=== PATIENT | male | born 1960 | race Caucasian/White ===

== ENCOUNTER 2016-07-03 15:13 | Inpatient (IN) | payer OTHER ==
[~2016-07-03] VITALS: Ht 188 cm; Wt 169.5 kg
[2016-07-06] VITALS (16 sets, daily range): BP systolic 83–140; BP diastolic 41–67; PULSE 72–82; RESP 11–23; Ht 188 cm; Wt 169.5 kg
[2016-07-06] MEDS ORDERED: EPHEDrine SULFATE 50 MG/5 ML SYG ONE (07:00)
[2016-07-06] MEDS ORDERED: VALS1TAB82 PO (08:39)
[2016-07-06] MEDS ORDERED: AMLO2.5T78 PO (08:40)
[2016-07-06] MEDS ORDERED: HYDR-902 PO (08:41)
[2016-07-06] MEDS ORDERED: METH500T8 PO (08:42)
[2016-07-06] MEDS ORDERED: PROPOFOL 100 ML ONE ×2 (08:53→12:49)
[2016-07-06] MEDS ORDERED: ROCURONIUM 50 MG INJ ONE ×2 (08:53→13:47)
[2016-07-06] MEDS ORDERED: SUCCINYLCHOLINE CHLORIDE 100 MG/5 ML SYG IV ONE ×2 (08:53→12:49)
[2016-07-06] MEDS ORDERED: MIDAZOLAM 1 MG/ML 2 ML INJ ONE (08:53)
[2016-07-06] MEDS ORDERED: CEFAZOLIN 2 GM/50 ML (PMX) 50 ML IVPB SCH (09:00)
[2016-07-06] MEDS ORDERED: LACTATED RINGER'S 1,000 ML IV SCH (09:00)
--- NOTE | 2016-07-06 10:07 | HPN ---
Date/Time of Note Date/Time of Note DATE: 07/06/16 TIME: 10:06 Interval H&P Admission Note Pt. seen H&P reviewed: No system changes GISELLA LOAIZA MD July 06, 2016 10:06
[2016-07-06] MEDS ORDERED: POLYMYXIN/BACITRACIN 1L IRRIG ONE (10:12)
[2016-07-06] MEDS ORDERED: THROMBIN 5000 UNIT VIAL ONE (10:12)
[2016-07-06] MEDS ORDERED: BUPIVACAINE 0.25% (MPF) 10 ML 10 ML VIAL ONE (10:12)
[2016-07-06] MEDS ORDERED: GELATIN SIZE 100 SPONGE ONE (10:12)
[2016-07-06] MEDS ORDERED: PHENYLephrine (100 MCG/ML) 5ML SYG ONE (10:40)
[2016-07-06] MEDS ORDERED: LABETALOL HCL 20MG INJ ONE (11:25)
[2016-07-06] MEDS ORDERED: hydrALAzine 20 MG INJ ONE (11:26)
[2016-07-06] MEDS ORDERED: METOCLOPRAMIDE 10 MG INJ ONE (12:50)
[2016-07-06] MEDS ORDERED: KETOROLAC 30 MG INJ ONE (12:50)
[2016-07-06] MEDS ORDERED: FAMOTIDINE 20 MG INJ ONE (12:50)
[2016-07-06] MEDS ORDERED: ONDANSETRON 4 MG INJ ONE (12:50)
[2016-07-06] MEDS ORDERED: DEXAMETHASONE 4 MG/ML 1 ML INJ ONE (12:50)
[2016-07-06] MEDS ORDERED: MEPERIDINE 25 MG INJ IV PRN (13:00)
[2016-07-06] MEDS ORDERED: LABETALOL HCL 20MG INJ IV PRN (13:00)
[2016-07-06] MEDS ORDERED: ONDANSETRON 4 MG INJ IV PRN ×2 (13:00→16:00)
[2016-07-06] MEDS ORDERED: morphine (1 MG/ML) 10ML SYRINGE IV PRN ×3 (13:00)
[2016-07-06] MEDS ORDERED: DIPHENHYDRAMINE 50 MG INJ IV PRN (13:00)
[2016-07-06] MEDS ORDERED: METOCLOPRAMIDE 10 MG INJ IV PRN (13:00)
[2016-07-06] MEDS ORDERED: EPHEDrine SULFATE 50 MG/5 ML SYG IV PRN (13:00)
[2016-07-06] MEDS ORDERED: FENTAnyl 50 MCG/ML VIAL IV PRN ×3 (13:00)
[2016-07-06] MEDS ORDERED: hydrALAzine 20 MG INJ IV PRN (13:00)
[2016-07-06] MEDS ORDERED: HYDROmorphONE (0.2 MG/ML) 10ML SYG IV PRN ×3 (13:00)
[2016-07-06] MEDS ORDERED: CEFAZOLIN 1 GM INJ ONE (15:18)
[2016-07-06] MEDS ORDERED: GLYCOPYRROLATE 0.4 MG INJ ONE (15:23)
[2016-07-06] MEDS ORDERED: NEOSTIGMINE 3 MG/3 ML SYRINGE ONE (15:23)
[2016-07-06] MEDS ORDERED: ACETAMINOPHEN 325 MG TAB PO PRN (16:00)
[2016-07-06] MEDS ORDERED: TRIMETHOBENZAMIDE 100 MG/ML VIAL IM PRN (16:00)
[2016-07-06] MEDS ORDERED: NALOXONE (0.4 MG/ML) INJ IV PRN (16:00)
[2016-07-06] MEDS ORDERED: BETHANECHOL 25 MG TAB PO PRN (16:00)
[2016-07-06] MEDS ORDERED: HYDROCODONE/APAP (5/325) TAB PO PRN (16:00)
[2016-07-06] MEDS ORDERED: HYDROmorphONE 0.2 MG/ML PCA IV SCH (16:00)
[2016-07-06] MEDS ORDERED: DIPHENHYDRAMINE 50 MG CAP PO PRN (16:00)
[2016-07-06] MEDS ORDERED: AL HYDROX/MG HYDROX/SIMETH 30 ML CUP PO PRN (16:00)
[2016-07-06] MEDS ORDERED: PROCHLORPERAZINE 10 MG TAB PO PRN (16:00)
[2016-07-06] MEDS ORDERED: NACL 0.9% 3 ML SYG IV SCH (16:00)
[2016-07-06] MEDS ORDERED: ZOLPIDEM 5 MG TAB PO PRN (16:00)
[2016-07-06] MEDS ORDERED: DIAZEPAM 5 MG/ML SYG IM PRN (16:00)
[2016-07-06] MEDS ORDERED: CEPASTAT LOZENGE MT PRN (16:00)
--- NOTE | 2016-07-06 16:04 | OPR ---
Date/Time of Note Date/Time of Note DATE: 07/06/16 TIME: 16:00 Operative Report Preoperative Diagnosis Lumbar Spinal Stenosis L2-L5 Postoperative Diagnosis Same Operation Performed Central decompressive laminectomy at L2 Central decompressive laminectomy at L3 Central decompressive laminectomy at L4 Central decompressive laminectomy at L5 Surgeon: GISELLA LOAIZA MD surgery assistant: GEETA CLEMENT Anesthesia: general Anesthesiologist: STEVENSON PALOMINO MD Estimated Blood Loss: other Specimens Spinous processes L2 L3 L4 L5 Tubes/Drains Two medium hemovacs Complications: None Pt Condition Post Procedure: stable Disposition: PACU Operative\Procedure Findings At surgery, multilevel spinal stenosis was confirmed L2-L5 GISELLA LOAIZA MD July 06, 2016 16:04
[2016-07-06 16:08] LABS: ADD SCAN DIFF NO
[2016-07-06 16:09] LABS: ABNORMAL IP MESSAGE 1; BASOPHILS % 0.2 % (0.0-2.0); EOSINOPHILS % 0.1 % (0.0-7.0); HEMATOCRIT 33.3 % (42.0-52.0); HEMOGLOBIN 10.9 g/dl (14.0-18.0); LYMPHOCYTES # 0.4 10^3/ul (0.8-2.9); LYMPHOCYTES % 2.8 % (15.0-51.0); MEAN CORPUSCULAR HGB CONC 32.7 g/dl (32.0-37.0); MEAN CORPUSCULAR VOLUME 85.6 fl (82.0-101.0); MEAN PLATELET VOLUME 10.1 fl (7.4-10.4); MONOCYTE # 0.3 10^3/ul (0.3-0.9); MONOCYTES % 1.7 % (0.0-11.0); NEUTROPHIL # 14.1 10^3/ul (1.6-7.5); NEUTROPHILS % 94.5 % (39.0-77.0); PLATELET COUNT 235 10^3/UL (140-415); RED BLOOD COUNT 3.89 10^6/ul (4.70-6.10); RED CELL DISTRIBUTION WIDTH 14.3 % (11.5-14.5); WHITE BLOOD COUNT 14.9 10^3/ul (4.8-10.8)
--- NOTE | 2016-07-06 17:28 | RADRPT ---
PROCEDURE: XR Lumbar Spine one view. CLINICAL INDICATION: Low back pain. Intraoperative. TECHNIQUE: Prone portable cross-table lateral. COMPARISON: No prior studies are available for comparison. FINDINGS: There are 2 posterior needle markers. The levels cannot be determined due to large size of the vani ent and suboptimal image. IMPRESSION: 1. Intraoperative imaging as described above. RPTAT: QQ .Eric Rodriguez MD, MD Date Time Electronically viewed and signed by .Eric Rodriguez MD, on 07/06/2016 17:28 .R/
--- NOTE | 2016-07-06 17:29 | RADRPT ---
PROCEDURE: XR Lumbar Spine one view. CLINICAL INDICATION: Low back pain. Intraoperative. TECHNIQUE: Prone portable cross-table lateral. COMPARISON: Prior study done earlier the same day. FINDINGS: There are 3 posterior surgical instruments. The levels cannot be determined due to large size of th e patient and suboptimal image. IMPRESSION: 1. Intraoperative imaging as described above. RPTAT: QQ .Eric Rodriguez MD, MD Date Time Electronically viewed and signed by .Eric Rodriguez MD, on 07/06/2016 17:29 .R/
[2016-07-06] MEDS: CEFAZOLIN 1 GM/50 ML (PMX) 50 ML IVPB SCH (18:01)
[2016-07-06] MEDS: DEXTROSE 5%-0.45% NACL 1,000 ML IV SCH (18:02)
--- NOTE | 2016-07-06 18:27 | CONS ---
Date/Time of Note Date/Time of Note DATE: 07/06/16 TIME: 18:14 Assessment/Plan Assessment/Plan Problems: (1) Essential (primary) hypertension Status: Chronic Comment: Cont. carvedilol and valsartan-HCT. Monitor BP (2) Morbid (severe) obesity due to excess calories Status: Chronic Comment: Low-fat diet and dietary consult. Cont. SCD's especially in light of Fhx of DVT (3) Tinea pedis Status: Acute Comment: Terbinafine cream bid (4) Lumbar spinal stenosis Status: Resolved (5) Aftercare following surgery of the musculoskeletal system Status: Acute Comment: Doing well POD#0. Acute neurologic injury appears resolved. PT/pain control per primary team. Will follow with you and monitor for medical issues should they arise. Consultation Date/Type/Reason Admit Date/Time July 06, 2016 at 07:55 Date of Consultation: July 06, 2016 Type of Consultation: Medicine Reason for Consultation Medical Management Referring Provider: GISELLA CABRERA MD Hx of Present Illness 55 y/o H M w/ h/o obesity and HTN in [facility] until 4 m. ago when he fell and tore meniscus in L knee. This led to multiple secondary falls which caused injury to his lumbar spine. Subsequent to this developed severe lumbar spinal pains running down both legs and associated BLE weakness and muscle spasms. It was determined that he would need decompressive surgery. Referred to Dr. Cabrera who took pt. today for lumbar lami L2-L5 this am. POD#0. No complaints. Constitutional: improved, no complaints Eyes: no complaints ENT: sore throat Respiratory: no complaints Cardiovascular: no complaints Gastrointestinal: no complaints Genitourinary: no complaints Musculoskeletal: no complaints Skin: rash (between toes) Neurologic: no complaints (leg weakness resolved) Past Medical History Medical History: hypertension Past Surgical History Past Surgical Hx: other (coronary angiogram, hammer toe surgery) Family History Significant Family History: cancer (colon, mother), hypertension, other (DVT- mother, B adrenal tumors-mother) Social History b. 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, single, no children Alcohol Use: rarely Smoking Status: Never smoker Drug Use: none Exam/Review of Systems Vital Signs Vitals Vital Signs Date Time Temp Pulse Resp B/P Pulse Ox O2 Delivery O2 Flow Rate FiO2 07/06/16 16:34 76 13 106/44 98 Nasal Cannula 2.0 07/06/16 15:43 98.1 Exam Constitutional: alert, obese, oriented Psych: nl mood/affect, no complaints Eyes: EOMI, PERRL, nl conjunctiva, nl lids, nl sclera ENMT: mucosa pink and moist, nl external ears & nose Neck: non-tender, supple, No bruits, No masses, No thyromegaly Respiratory: clear to auscultation, normal air movement Cardiovascular: nl pulses, regular rate and rhythm, No edema, No murmurs/extra sounds, No rub Gastrointestinal: bowel sounds, nl liver, spleen, non-tender, soft, No mass, No rebound or guarding Musculoskeletal: nl extremities to inspection Extremities: normal pulses, No clubbing, No cyanosis, No edema 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: LACE SEWER II-XII intact, nl mental status, nl speech, nl strength Skin: other (rash between 3rd and 4th digits on L foot) Results Result Diagram: 07/06/16 1600 Results 24 hrs Laboratory Tests Test 07/06/16 16:00 White Blood Count 14.9 H Red Blood Count 3.89 L Hemoglobin 10.9 L Hematocrit 33.3 L Mean Corpuscular Volume 85.6 Mean Corpuscular Hemoglobin 28.0 L Mean Corpuscular Hemoglobin Concent 32.7 Red Cell Distribution Width 14.3 Platelet Count 235 Mean Platelet Volume 10.1 Neutrophils % 94.5 H Lymphocytes % 2.8 L Monocytes % 1.7 Eosinophils % 0.1 Basophils % 0.2 Nucleated Red Blood Cells % 0.0 Neutrophils # 14.1 H Lymphocytes # 0.4 L Monocytes # 0.3 Eosinophils # 0.0 Basophils # 0.0 Nucleated Red Blood Cells # 0.0 Medications Medications Current Medications Lactated Ringer's 1,000 ml @ 0 mls/hr Q0M IV ; Start 07/06/16 at 09:00 Dextrose/Sodium Chloride (D5-1/2ns) 1,000 ml @ 100 mls/hr Q10H IV Last administered on 07/06/16t 18:02; Admin Dose 100 MLS/HR; Start 07/06/16 at 15:46 Acetaminophen/ Hydrocodone Bitart ([place] (5/325)) 1 tab Q4H PRN PO PAIN LEVEL 1 -5; Start 07/06/16 at 16:00 Acetaminophen/ Hydrocodone Bitart 2 tab 2 tab Q4H PRN PO PAIN LEVEL 6-10; Start 07/06/16 at 16:00 Cefazolin Sodium (Ancef 1 Gm/50 ml (Pmx)) 50 ml @ 100 mls/hr Q6 IVPB Last administered on 07/06/16t 18:01; Admin Dose 100 MLS/HR; Start 07/06/16 at 18:00 ; Stop 07/07/16 at 12:29 Zolpidem Tartrate (Ambien) 5 mg HS PRN PO INSOMNIA; Start 07/06/16 at 16:00 Prochlorperazine (Compazine) 10 mg Q4H PRN PO NAUSEA AND/OR VOMITING; Start at 16:00 Trimethobenzamide HCl (Tigan) 200 mg Q4H PRN IM NAUSEA AND/OR VOMITING; Start 07/06/16 at 16:00 Ondansetron HCl (Zofran Inj) 4 mg Q6H PRN IV NAUSEA AND/OR VOMITING; Start at 16:00 Al Hydrox/Mg Hydrox/Simethicone (Mag-Al Plus) 15 ml Q4H PRN PO CONSTIPATION; Start 07/06/16 at 16:00 Docusate Sodium (Colace) 100 mg BID PO ; Start 07/07/16 at 09:00 Acetaminophen (Tylenol Tab) 650 mg Q4H PRN PO TEMP GREATER THAN 101F OR CABRAL; Start 07/06/16 at 16:00 Ascorbic Acid (Vitamin C) 1,000 mg BID PO ; Start 07/07/16 at 09:00 Ferrous Sulfate (Ferrous Sulfate (Ec)) 325 mg TID PO ; Start 07/07/16 at 09:00 Ranitidine HCl (Zantac) 150 mg BID PO ; Start 07/06/16 at 21:00 Diazepam (Valium) 5 mg Q4H PRN PO MUSCLE SPASMS; Start 07/06/16 at 16:00 Diazepam (Valium) 5 mg Q4H PRN IM MUSCLE SPASMS; Start 07/06/16 at 16:00 Phenol (Cepastat Lozenge) 1 lozenge PRN PRN MT SORE THROAT; Start 07/06/16 at 16:00 Bethanechol Chloride (Urecholine) 25 mg PRN PRN PO UNABLE TO VOID; Start at 16:00 Diphenhydramine HCl (Benadryl) 50 mg Q6H PRN PO PRURITUS; Start 07/06/16 at 16: 00 Hydromorphone HCl (Dilaudid ASSISTANT ATHLETIC TRAINER) Q4PCA IV Last administered on 07/06/16t 16:13 ; Admin Dose 6 MG; Start 07/06/16 at 16:00 Naloxone HCl (Narcan) 0.2 mg Q2M PRN IV RR 8 BREATHS/MIN OR LESS; Start at 16:00 Amlodipine Besylate (Norvasc) 2.5 mg DAILY PO ; Start 07/07/16 at 09:00 Miscellaneous Information 1 tab DAILY PO ; Start 07/07/16 at 09:00; Status ASHLEY ZUNIGA MD July 06, 2016 18:24
--- NOTE | 2016-07-06 18:46 | OPR ---
DATE OF OPERATION: 07/06/2016 PREOPERATIVE DIAGNOSIS: Multilevel lumbar spinal stenosis at L2, L3, L4 and L5. POSTOPERATIVE DIAGNOSES: Multilevel lumbar spinal stenosis at L2, L3, L4 and L5. OPERATION PERFORMED: 1. Central decompressive laminectomy at L2. 2. Central decompressive laminectomy at L3. 3. Central decompressive laminectomy at L4. 4. Central decompressive laminectomy at L5. 5. Medial facetectomy and foraminotomy, L2-3, L3-4, L4-5, L5-S1, bilaterally. 6. Cosmetic wound closure (22 cm). 7. Lateral localized lumbar radiographs (2). 8. Intraoperative nerve monitoring (5-1/2 hours). SURGEON: Amari Cabrera MD SOLAR SALES: Sachi Morataya PA-C ANESTHESIA: General endotracheal. ANESTHESIOLOGIST: Wesly De Leon MD ESTIMATED BLOOD LOSS: 1100 mL-none replaced. DRAINS: Two medium Hemovac drains employed. COMPLICATIONS: None. PERTINENT HISTORY AND PHYSICAL: This is a 55-year-old male with persistent severe pain in his back and legs which have been unrelieved by conservative management. He has undergone a number of diagno stic studies including an MRI of the lumbar spine, which demonstrated multilevel canal stenosis, and electrodiagnostic testing which revealed an active bilateral L5 and bilateral S1 radiculopathy with ongoing denervation. Treatment options were discussed with the patient, who elected to proceed wit h surgery. OPERATIVE FINDINGS AT SURGERY: A multilevel spinal stenosis was confirmed at L2, L3, L4, and L5. OPERATIVE PROCEDURE: With the patient in supine position after satisfactory induction of general en dotracheal anesthesia by Dr. De Leon the patient was turned to the prone kneeling position. Intraop erative nerve monitoring revealed a decrease in the L2 potential of 20% bilaterally, the L3 potentia l on the left of 70%, the L3 potential on the right 80%, the L4 potential on the left 60%, the L4 po tential on the right of 70%, the L5 potentials bilaterally 50% and the S1 potentials bilaterally 40% . These all returned to normal at the completion of surgery. OPERATIVE PROCEDURE: With the patient in supine position after satisfactory induction of general en dotracheal anesthesia by Dr. De Leon the patient was turned to the prone position onto the [facility] atop the standard operating room table. This was employed because of his size (380 pounds). Th e back was prepped and draped in usual sterile fashion. Athrombic pumps were applied to the legs be low the knees to prevent venous stasis during and after procedure. An indwelling Robles catheter was also placed preoperatively to facilitate bladder drainage during and after procedure. Two spinal ne edles were placed next to what was felt to be the L4 and L5 spinous processes, lateral roentgenogram was taken which confirmed anatomic localization. A 22 cm incision was then carried out from L2 to the sacrum through skin and subcutaneous tissue to the fascia. Superficial retractors were placed a nd hemostasis secured with electrocautery. Throughout the procedure, copious amounts of antibacteri al irrigating solution were used to periodically irrigate the wound. The fascia was incised in midl ine with a hot knife and a bilateral subperiosteal dissection carried out from L2 to the sacrum. De ep retractors were placed and deep hemostasis secured with electrocautery. A second intraoperative radiograph was taken with Hang clamps in what was felt to be the spinous process of L2, L3 and L4. However, neither nor the radiologist could confirm localization because of the patient's enormous size. For that reason, the dissection was carried distally to identify the sacrum which was used as an anatomic landmark. With this in mind, a central decompressive laminectomy was then performed at L5, L4, L3 and L2 using a Estefany right-angle bone rongeur, Leksell rongeur, Kerrison punches and c urettes. Ligamentum flavum was excised with sharp dissection. The operating microscope was then mo eddie into place. A medial facetectomy and foraminotomy was accomplished at L2-3, L3-4, L4-5, and L5- S1 bilaterally using small hand osteotome, mallet, Kerrison punches and curettes. A thorough search of the floor of the canal was made but no disk herniations were identified. The anesthesiologist w as asked to perform a Valsalva maneuver at 40 mmHg. No spinal fluid leak was noted. The wound was then closed in layers over 2 medium Hemovac drains, one below the fascia and one above the fascia us ing #1 Vicryl Stratafix sutures on the deep paralumbar musculature and of the back, 2-0 Stratafix real tures on the subcu tissue, and a 4-0 Vicryl subcuticular cosmetic closing suture on the skin. Orwin alberts and sterile compressive dressings were applied. The patient tolerated the procedure well, was then turned to supine position onto his bed and extubated by Dr. De Leon. He was transported to the recovery room in satisfactory condition. At the conclusion of the procedure, sponge, instrument, a nd needle counts were all correct. NEED FOR GRINDER OPERATOR EXTERNAL TOOL: During this spinal surgical procedure, my doctor assistant was used to retrac t and protect the spinal nerves and dural sac. My doctor assistant also employed the suction catheters to e vacuate blood from the surgical field to improve visualization of the neural structures. The assista nt was medically necessary to facilitate the completion of the surgery in a safe and expeditious man ner. State of [place] regulations, as well as hospital bylaws, preclude the use of non-licensed [facility] care personnel such as operating room technicians, to perform these functions. Throughout the procedure, neural monitoring was carried out by [employer] including EMG, SSEP and MEP monitoring of the L3, L4, L5 and S1 nerve roots bilaterally along with s john cord potentials. These were interpreted by neurologist employed by [email or web address]. Dictated By: AMARI CABRERA MD TM/NTS Conf#: [id number] DID#: [id number] CC: ASHLEY JEREZ MD;*[facility]*
[2016-07-06] MEDS: RANITIDINE 150 MG TAB PO SCH (20:25)
[2016-07-06] MEDS: CLOTRIMAZOLE 1% 30 GM CR TOP SCH (20:25)
[2016-07-06] MEDS: DIAZEPAM 5 MG TAB PO PRN (20:31)
[2016-07-07] MEDS: CEFAZOLIN 1 GM/50 ML (PMX) 50 ML IVPB SCH ×3 (00:11→14:54)
[2016-07-07] MEDS: DIAZEPAM 5 MG TAB PO PRN ×3 (00:38→21:57)
[2016-07-07 01:02] VITALS: BP 128/76; PULSE 103; RESP 18
[2016-07-07] MEDS: DEXTROSE 5%-0.45% NACL 1,000 ML IV SCH ×3 (03:13→21:46)
[2016-07-07 05:55] LABS: HEMOGLOBIN 9.8 g/dl (14.0-18.0)
[2016-07-07 06:13] LABS: CALCIUM 7.8 mg/dl (8.4-10.2); CREATININE 1.35 mg/dl (0.61-1.24); POTASSIUM 3.5 mmol/L (3.5-5.1)
--- NOTE | 2016-07-07 07:13 | PN ---
Date/Time of Note Date/Time of Note DATE: 07/07/16 TIME: 07:11 Assessment/Plan Lines/Catheters IV Catheter Type (from Nrsg): Peripheral IV Robles in Place (from Nrsg): Yes Subjective 24 Hr Interval Summary Patient is postop day #1 following multilevel lumbar decompression. Neurovascular structures are intact. Vital signs are stable, hemoglobin this morning is 9.8. Hemovac drain overnight was 200 cc and this will be monitored. Plan today is to ambulate. Exam/Review of Systems Vital Signs Vitals Vital Signs Date Time Temp Pulse Resp B/P Pulse Ox O2 Delivery O2 Flow Rate FiO2 07/07/16 06:04 18 07/07/16 01:02 98.6 103 128/76 98 Nasal Cannula 1.0 Intake and Output 07/06/16 07/06/16 07/07/16 15:00 23:00 07:00 Intake Total 3100 ml 150 ml 2975 ml Output Total 1410 ml 1000 ml Balance 3100 ml -1260 ml 1975 ml Results Result Diagram: 07/07/16 0445 07/07/16 0445 GEETA CLEMENT July 07, 2016 07:13
--- NOTE | 2016-07-07 08:14 | OPPN ---
Date/Time of Note Date/Time of Note DATE: 07/07/16 TIME: 08:14 Post-Anesthesia Notes Post-Anesthesia Note Last documented vital signs Vital Signs Date Time Temp Pulse Resp B/P Pulse Ox O2 Delivery O2 Flow Rate FiO2 07/07/16 06:04 18 07/07/16 01:02 98.6 103 128/76 98 Nasal Cannula 1.0 Activity: WNL Respiratory function: WNL Cardiovascular function: WNL Mental status: Baseline Pain reasonably controlled: Yes Hydration appropriate: Yes Nausea/Vomiting absent: Yes STEVENSON PALOMINO MD July 07, 2016 08:14
[2016-07-07] MEDS: RANITIDINE 150 MG TAB PO SCH ×2 (08:20→20:17)
[2016-07-07] MEDS: ASCORBIC ACID 500 MG TAB PO SCH ×2 (08:20→20:18)
[2016-07-07] MEDS: DOCUSATE SODIUM 100 MG CAP PO SCH ×2 (08:20→20:17)
[2016-07-07] MEDS: FERROUS SULFATE (EC) 325 MG TAB PO SCH ×3 (08:20→20:17)
[2016-07-07] MEDS: BETHANECHOL 25 MG TAB PO PRN ×2 (08:33→14:54)
[2016-07-07 08:34] VITALS: BP 98/47; RESP 16
[2016-07-07] MEDS: HYDROCHLOROTHIAZIDE 25 MG TAB PO SCH (09:00)
[2016-07-07] MEDS: VALSARTAN 160 MG TAB PO SCH (09:00)
[2016-07-07] MEDS: AMLODIPINE 2.5 MG TAB PO SCH (09:00)
[2016-07-07] MEDS: HYDROCODONE/APAP (5/325) TAB PO PRN ×2 (12:40→20:17)
[2016-07-07] MEDS: CLOTRIMAZOLE 1% 30 GM CR TOP SCH ×2 (14:56→20:19)
[2016-07-07 20:57] VITALS: BP 100/58; RESP 20
--- NOTE | 2016-07-07 21:33 | CONS ---
Date/Time of Note Date/Time of Note DATE: 07/07/16 TIME: 21:28 Assessment/Plan Assessment/Plan Problems: (1) Essential (primary) hypertension Status: Chronic Comment: BP controlled w/o BP meds. Will monitor (2) Morbid (severe) obesity due to excess calories Status: Chronic Comment: Nutrition consult today. Cont. low-fat diet. (3) Aftercare following surgery of the musculoskeletal system Status: Acute Comment: Doing well POD#1. Pain controlled. Doing PT. Defer to primary team for further care. 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), bone/joint pain Neurologic: no complaints Exam/Review of Systems Vital Signs Vitals VS - Last 72 Hours, by Label Date Time Temp Pulse Resp B/P Pulse Ox O2 Delivery O2 Flow Rate FiO2 07/07/16 20:57 99.1 98 20 100/58 97 07/07/16 08:34 98.5 95 16 98/47 95 07/07/16 08:30 19 07/07/16 06:04 18 07/07/16 01:02 98.6 103 18 128/76 98 Nasal Cannula 1.0 07/07/16 01:00 18 07/06/16 21:00 18 07/06/16 20:20 Nasal Cannula 2.0 07/06/16 19:51 98.5 94 18 116/62 95 07/06/16 17:00 Nasal Cannula 2.0 07/06/16 16:34 76 13 106/44 98 Nasal Cannula 2.0 07/06/16 16:29 74 14 107/56 99 Nasal Cannula 2.0 07/06/16 16:24 74 17 113/44 99 Nasal Cannula 2.0 07/06/16 16:24 74 17 113/44 99 Nasal Cannula 2.0 07/06/16 16:19 78 13 102/51 98 Nasal Cannula 2.0 07/06/16 16:19 78 13 102/51 98 Nasal Cannula 2.0 07/06/16 16:14 76 16 102/49 98 Nasal Cannula 2.0 07/06/16 16:09 74 15 101/45 98 Nasal Cannula 2.0 07/06/16 16:04 74 15 96/43 98 Nasal Cannula 2.0 07/06/16 16:03 72 11 95/48 98 Nasal Cannula 2.0 07/06/16 15:54 72 14 100/42 97 Nasal Cannula 2.0 07/06/16 15:52 72 14 83/42 97 Nasal Cannula 2.0 07/06/16 15:49 72 13 86/44 96 Nasal Cannula 2.0 07/06/16 15:46 74 13 94/45 98 Nasal Cannula 2.0 07/06/16 15:44 74 16 90/41 97 Mask 6.0 07/06/16 15:43 98.1 07/06/16 15:39 98.2 78 23 106/50 98 Mask 6.0 07/06/16 15:36 Simple Mask 6.0 07/06/16 09:48 97.7 82 18 140/67 98 Room Air Vital Signs Date Time Temp Pulse Resp B/P Pulse Ox O2 Delivery O2 Flow Rate FiO2 07/07/16 20:57 99.1 98 20 100/58 97 07/07/16 01:02 Nasal Cannula 1.0 Intake and Output 07/06/16 07/06/16 07/07/16 15:00 23:00 07:00 Intake Total 3100 ml 150 ml 2975 ml Output Total 1410 ml 1000 ml Balance 3100 ml -1260 ml 1975 ml Exam Constitutional: alert, obese, oriented Psych: nl mood/affect, no complaints Respiratory: clear to auscultation, normal air movement Cardiovascular: nl pulses, regular rate and rhythm, No edema, No murmurs/extra sounds, No rub Gastrointestinal: bowel sounds, nl liver, spleen, non-tender, soft, No mass, No rebound or guarding Musculoskeletal: nl extremities to inspection Extremities: normal pulses, No clubbing, No cyanosis, No edema 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: CASSANDRA CONSULTANT II-XII intact, nl mental status, nl speech, nl strength Results Result Diagram: 07/07/165 07/07/165 Results 24 hrs Laboratory Tests Test 07/07/16 04:45 Hemoglobin 9.8 L Hematocrit 31.0 L Sodium Level 133 L Potassium Level 3.5 Chloride Level 103 Carbon Dioxide Level 26 Anion Gap 8 Blood Urea Nitrogen 22 H Creatinine 1.35 H Glucose Level 121 Calcium Level 7.8 L Medications Medications Current Medications Lactated Ringer's 1,000 ml @ 0 mls/hr Q0M IV ; Start 07/06/16 at 09:00 Dextrose/Sodium Chloride (D5-1/2ns) 1,000 ml @ 100 mls/hr Q10H IV Last administered on 07/07/16 03:13; Admin Dose 100 MLS/HR; Start 07/06/16 at 15:46 Acetaminophen/ Hydrocodone Bitart ([place] (5/325)) 1 tab Q4H PRN PO PAIN LEVEL 1 -5; Start 07/06/16 at 16:00 Acetaminophen/ Hydrocodone Bitart ([place] (5/325)) 2 tab Q4H PRN PO PAIN LEVEL 6 -10 Last administered on 07/07/16 20:17; Admin Dose 2 TAB; Start 07/06/16 at 16 :00 Zolpidem Tartrate (Ambien) 5 mg HS PRN PO INSOMNIA; Start 07/06/16 at 16:00 Prochlorperazine (Compazine) 10 mg Q4H PRN PO NAUSEA AND/OR VOMITING; Start at 16:00 Trimethobenzamide HCl (Tigan) 200 mg Q4H PRN IM NAUSEA AND/OR VOMITING; Start 07/06/16 at 16:00 Ondansetron HCl (Zofran Inj) 4 mg Q6H PRN IV NAUSEA AND/OR VOMITING; Start at 16:00 Al Hydrox/Mg Hydrox/Simethicone (Mag-Al Plus) 15 ml Q4H PRN PO CONSTIPATION; Start 07/06/16 at 16:00 Docusate Sodium (Colace) 100 mg BID PO Last administered on 07/07/16 20:17; Admin Dose 100 MG; Start 07/07/16 at 09:00 Acetaminophen (Tylenol Tab) 650 mg Q4H PRN PO TEMP GREATER THAN 101F OR CABRAL; Start 07/06/16 at 16:00 Ascorbic Acid (Vitamin C) 1,000 mg BID PO Last administered on 07/07/16 20:18 ; Admin Dose 1,000 MG; Start 07/07/16 at 09:00 Ferrous Sulfate (Ferrous Sulfate (Ec)) 325 mg TID PO Last administered on 20:17; Admin Dose 325 MG; Start 07/07/16 at 09:00 Ranitidine HCl (Zantac) 150 mg BID PO Last administered on 07/07/16 20:17; Admin Dose 150 MG; Start 07/06/16 at 21:00 Diazepam (Valium) 5 mg Q4H PRN PO MUSCLE SPASMS Last administered on 07/07/16 05:10; Admin Dose 5 MG; Start 07/06/16 at 16:00 Diazepam (Valium) 5 mg Q4H PRN IM MUSCLE SPASMS; Start 07/06/16 at 16:00 Phenol (Cepastat Lozenge) 1 lozenge PRN PRN MT SORE THROAT; Start 07/06/16 at 16:00 Diphenhydramine HCl (Benadryl) 50 mg Q6H PRN PO PRURITUS; Start 07/06/16 at 16: 00 Hydromorphone HCl (Dilaudid RESIDENT SERVICES SUPERVISOR) Q4PCA IV Last administered on 07/06/16 16:13 ; Admin Dose 6 MG; Start 07/06/16 at 16:00 Naloxone HCl (Narcan) 0.2 mg Q2M PRN IV RR 8 BREATHS/MIN OR LESS; Start at 16:00 Amlodipine Besylate (Norvasc) 2.5 mg DAILY PO ; Start 07/07/16 at 09:00 Valsartan (Diovan) 320 mg DAILY PO ; Start 07/07/16 at 09:00 Clotrimazole (Lotrimin Cr) 1 applic BID TOP Last administered on 07/07/16 20: 19; Admin Dose 1 APPLIC; Start 07/06/16 at 21:00 Hydrochlorothiazide (Hydrochlorothiazide) 25 mg DAILY PO ; Start 07/07/16 at 09: 00 Bethanechol Chloride (Urecholine) 25 mg PRN PRN PO UNABLE TO VOID Last administered on 07/07/16 14:54; Admin Dose 25 MG; Start 07/07/16 at 08:00 ASHLEY JEREZ MD July 07, 2016 21:32
[2016-07-08] MEDS: HYDROCODONE/APAP (5/325) TAB PO PRN ×5 (00:36→20:40)
[2016-07-08] MEDS: DEXTROSE 5%-0.45% NACL 1,000 ML IV SCH ×2 (02:35→16:50)
[2016-07-08] MEDS: DIAZEPAM 5 MG TAB PO PRN ×2 (04:38→20:39)
[2016-07-08 05:11] LABS: HEMATOCRIT 29.2 % (42.0-52.0); HEMOGLOBIN 9.4 g/dl (14.0-18.0)
[2016-07-08 05:46] LABS: CALCIUM 7.9 mg/dl (8.4-10.2); CREATININE 1.32 mg/dl (0.61-1.24); POTASSIUM 3.8 mmol/L (3.5-5.1)
--- NOTE | 2016-07-08 06:53 | PN ---
Date/Time of Note Date/Time of Note DATE: 07/08/16 TIME: 06:52 Assessment/Plan Lines/Catheters IV Catheter Type (from Nrsg): Saline Lock Robles in Place (from Nrsg): No Subjective 24 Hr Interval Summary The patient is postop day #2 following multilevel decompressive lumbar laminectomy. He is resting comfortably in bed. Neurovascular structures are intact distally. A.m. labs are unremarkable. He still has significant drainage in his Hemovac and we will observe that throughout the day. He is made slow progress with physical therapy thus far has been encouraged to do his best in walking around the floor. Exam/Review of Systems Vital Signs Vitals Vital Signs Date Time Temp Pulse Resp B/P Pulse Ox O2 Delivery O2 Flow Rate FiO2 07/07/16 20:57 99.1 98 20 100/58 97 07/07/16 01:02 Nasal Cannula 1.0 Intake and Output 07/07/16 07/07/16 07/08/16 15:00 23:00 07:00 Intake Total 200 ml 2040 ml 1600 ml Output Total 270 ml 1610 ml Balance 200 ml 1770 ml -10 ml Results Result Diagram: 07/08/16 0425 07/08/16 0425 GISELLA LOAIZA MD July 08, 2016 06:53
[2016-07-08 07:00] VITALS: BP 111/54; RESP 16
[2016-07-08] MEDS: HYDROCHLOROTHIAZIDE 25 MG TAB PO SCH (09:00)
[2016-07-08] MEDS: VALSARTAN 160 MG TAB PO SCH (09:00)
[2016-07-08] MEDS: RANITIDINE 150 MG TAB PO SCH ×2 (09:03→20:40)
[2016-07-08] MEDS: DOCUSATE SODIUM 100 MG CAP PO SCH ×2 (09:03→20:40)
[2016-07-08] MEDS: ASCORBIC ACID 500 MG TAB PO SCH ×2 (09:03→20:39)
[2016-07-08] MEDS: FERROUS SULFATE (EC) 325 MG TAB PO SCH ×3 (09:04→20:40)
[2016-07-08] MEDS: AMLODIPINE 2.5 MG TAB PO SCH (09:05)
[2016-07-08] MEDS: CLOTRIMAZOLE 1% 30 GM CR TOP SCH ×2 (09:06→20:44)
[2016-07-08 13:22] LABS: ADD UMIC YES; URINE BILIRUBIN (Dip) NEGATIVE (NEGATIVE); URINE BLOOD (Dip) NEGATIVE (NEGATIVE); URINE COLOR YELLOW (YELLOW); URINE GLUCOSE (Dip) NEGATIVE (NEGATIVE); URINE KETONES (Dip) TRACE (NEGATIVE); URINE LEUKOCYTE ESTERASE (Dip) NEGATIVE (NEGATIVE); URINE NITRITE (Dip) NEGATIVE (NEGATIVE); URINE TOTAL PROTEIN (Dip) 1+ (NEGATIVE); URINE UROBILINOGEN (Dip) 0.2 E.U./dL (0.1-1.0)
[2016-07-08 13:45] LABS: URINE RBCS NONE SEEN /HPF (0)
--- NOTE | 2016-07-08 18:06 | CONS ---
Date/Time of Note Date/Time of Note DATE: 07/08/16 TIME: 18:03 Assessment/Plan Assessment/Plan Problems: (1) Essential (primary) hypertension Status: Chronic Comment: BP continues to be in excellent control and pt. not requiring his home BP therapy. Will monitor. (2) Aftercare following surgery of the musculoskeletal system Status: Acute Comment: Doing well POD#2. No medical issues. Ambulating but drainage continues. Attempt to d/c tomorrow. Consultation Date/Type/Reason Admit Date/Time July 06, 2016 at 07:55 Initial Consult Date 07/06/16 Type of Consultation: Medicine Reason for Consultation Medical management Referring Provider: GISELLA LOAIZA MD 24 HR Interval Summary Constitutional: improved (ambulating more), no complaints Detailed Summary Respiratory: no complaints Cardiovascular: no complaints Gastrointestinal: no complaints Genitourinary: no complaints Musculoskeletal: back pain (worse when he tries to rise from bed but abates w/ standing), bone/joint pain (L knee) Neurologic: no complaints Exam/Review of Systems Vital Signs Vitals VS - Last 72 Hours, by Label Date Time Temp Pulse Resp B/P Pulse Ox O2 Delivery O2 Flow Rate FiO2 07/08/16 07:00 98.7 89 16 111/54 94 07/07/16 20:57 99.1 98 20 100/58 97 07/07/16 08:34 98.5 95 16 98/47 95 07/07/16 08:30 19 07/07/16 06:04 18 07/07/16 01:02 98.6 103 18 128/76 98 Nasal Cannula 1.0 07/07/16 01:00 18 07/06/16 21:00 18 07/06/16 20:20 Nasal Cannula 2.0 07/06/16 19:51 98.5 94 18 116/62 95 07/06/16 17:00 Nasal Cannula 2.0 07/06/16 16:34 76 13 106/44 98 Nasal Cannula 2.0 07/06/16 16:29 74 14 107/56 99 Nasal Cannula 2.0 07/06/16 16:24 74 17 113/44 99 Nasal Cannula 2.0 07/06/16 16:24 74 17 113/44 99 Nasal Cannula 2.0 07/06/16 16:19 78 13 102/51 98 Nasal Cannula 2.0 07/06/16 16:19 78 13 102/51 98 Nasal Cannula 2.0 07/06/16 16:14 76 16 102/49 98 Nasal Cannula 2.0 07/06/16 16:09 74 15 101/45 98 Nasal Cannula 2.0 07/06/16 16:04 74 15 96/43 98 Nasal Cannula 2.0 07/06/16 16:03 72 11 95/48 98 Nasal Cannula 2.0 07/06/16 15:54 72 14 100/42 97 Nasal Cannula 2.0 07/06/16 15:52 72 14 83/42 97 Nasal Cannula 2.0 07/06/16 15:49 72 13 86/44 96 Nasal Cannula 2.0 07/06/16 15:46 74 13 94/45 98 Nasal Cannula 2.0 07/06/16 15:44 74 16 90/41 97 Mask 6.0 07/06/16 15:43 98.1 07/06/16 15:39 98.2 78 23 106/50 98 Mask 6.0 07/06/16 15:36 Simple Mask 6.0 07/06/16 09:48 97.7 82 18 140/67 98 Room Air Vital Signs Date Time Temp Pulse Resp B/P Pulse Ox O2 Delivery O2 Flow Rate FiO2 07/08/16 07:00 98.7 89 16 111/54 94 07/07/16 01:02 Nasal Cannula 1.0 Intake and Output 07/07/16 07/07/16 07/08/16 15:00 23:00 07:00 Intake Total 200 ml 2040 ml 1600 ml Output Total 270 ml 1610 ml Balance 200 ml 1770 ml -10 ml Exam Constitutional: alert, obese, oriented Psych: nl mood/affect, no complaints Respiratory: clear to auscultation, normal air movement Cardiovascular: nl pulses, regular rate and rhythm, No edema, No murmurs/extra sounds, No rub Gastrointestinal: bowel sounds, nl liver, spleen, non-tender, soft, No mass, No rebound or guarding Musculoskeletal: nl extremities to inspection Extremities: normal pulses, No clubbing, No cyanosis, No edema 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: 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 SOLUTIONS 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 II-XII 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, nl mental status, nl speech, nl strength Results Result Diagram: 07/08/16 0425 07/08/16 0425 Results 24 hrs Laboratory Tests Test 07/08/16 04:25 Hemoglobin 9.4 L Hematocrit 29.2 L Sodium Level 134 L Potassium Level 3.8 Chloride Level 102 Carbon Dioxide Level 29 Anion Gap 7 L Blood Urea Nitrogen 22 H Creatinine 1.32 H Glucose Level 102 Calcium Level 7.9 L Medications Medications Current Medications Lactated Ringer's 1,000 ml @ 0 mls/hr Q0M IV ; Start 07/06/16 at 09:00 Dextrose/Sodium Chloride (D5-1/2ns) 1,000 ml @ 100 mls/hr Q10H IV Last administered on 07/07/16 03:13; Admin Dose 100 MLS/HR; Start 07/06/16 at 15:46 Acetaminophen/ Hydrocodone Bitart ([place] (5/325)) 1 tab Q4H PRN PO PAIN LEVEL 1 -5; Start 07/06/16 at 16:00 Acetaminophen/ Hydrocodone Bitart ([place] (5/325)) 2 tab Q4H PRN PO PAIN LEVEL 6 -10 Last administered on 07/08/16 14:01; Admin Dose 2 TAB; Start 07/06/16 at 16 :00 Zolpidem Tartrate (Ambien) 5 mg HS PRN PO INSOMNIA; Start 07/06/16 at 16:00 Prochlorperazine (Compazine) 10 mg Q4H PRN PO NAUSEA AND/OR VOMITING; Start at 16:00 Trimethobenzamide HCl (Tigan) 200 mg Q4H PRN IM NAUSEA AND/OR VOMITING; Start 07/06/16 at 16:00 Ondansetron HCl (Zofran Inj) 4 mg Q6H PRN IV NAUSEA AND/OR VOMITING; Start at 16:00 Al Hydrox/Mg Hydrox/Simethicone (Mag-Al Plus) 15 ml Q4H PRN PO CONSTIPATION; Start 07/06/16 at 16:00 Docusate Sodium (Colace) 100 mg BID PO Last administered on 07/08/16 09:03; Admin Dose 100 MG; Start 07/07/16 at 09:00 Acetaminophen (Tylenol Tab) 650 mg Q4H PRN PO TEMP GREATER THAN 101F OR CABRAL; Start 07/06/16 at 16:00 Ascorbic Acid (Vitamin C) 1,000 mg BID PO Last administered on 07/08/16 09:03 ; Admin Dose 1,000 MG; Start 07/07/16 at 09:00 Ferrous Sulfate (Ferrous Sulfate (Ec)) 325 mg TID PO Last administered on 12:21; Admin Dose 325 MG; Start 07/07/16 at 09:00 Ranitidine HCl (Zantac) 150 mg BID PO Last administered on 07/08/16 09:03; Admin Dose 150 MG; Start 07/06/16 at 21:00 Diazepam (Valium) 5 mg Q4H PRN PO MUSCLE SPASMS Last administered on 07/08/16 04:38; Admin Dose 5 MG; Start 07/06/16 at 16:00 Diazepam (Valium) 5 mg Q4H PRN IM MUSCLE SPASMS; Start 07/06/16 at 16:00 Phenol (Cepastat Lozenge) 1 lozenge PRN PRN MT SORE THROAT; Start 07/06/16 at 16:00 Diphenhydramine HCl (Benadryl) 50 mg Q6H PRN PO PRURITUS; Start 07/06/16 at 16: 00 Hydromorphone HCl (Dilaudid DETECTIVE AUTOMOBILE SECTION) Q4PCA IV Last administered on 07/06/16 16:13 ; Admin Dose 6 MG; Start 07/06/16 at 16:00 Naloxone HCl (Narcan) 0.2 mg Q2M PRN IV RR 8 BREATHS/MIN OR LESS; Start at 16:00 Amlodipine Besylate (Norvasc) 2.5 mg DAILY PO Last administered on 07/08/16 09 :05; Admin Dose 2.5 MG; Start 07/07/16 at 09:00 Valsartan (Diovan) 320 mg DAILY PO ; Start 07/07/16 at 09:00 Clotrimazole (Lotrimin Cr) 1 applic BID TOP Last administered on 07/08/16 09: 06; Admin Dose 1 APPLIC; Start 07/06/16 at 21:00 Hydrochlorothiazide (Hydrochlorothiazide) 25 mg DAILY PO ; Start 07/07/16 at 09: 00 Bethanechol Chloride (Urecholine) 25 mg PRN PRN PO UNABLE TO VOID Last administered on 07/07/16 14:54; Admin Dose 25 MG; Start 07/07/16 at 08:00 ASHLEY JEREZ MD July 08, 2016 18:06
[2016-07-08 19:00] VITALS: BP 119/59; RESP 18
[2016-07-09] MEDS: DEXTROSE 5%-0.45% NACL 1,000 ML IV SCH (03:46)
[2016-07-09] MEDS: HYDROCODONE/APAP (5/325) TAB PO PRN ×3 (06:41→20:05)
--- NOTE | 2016-07-09 07:31 | PN ---
Date/Time of Note Date/Time of Note DATE: 07/09/16 TIME: 07:30 Assessment/Plan Lines/Catheters IV Catheter Type (from Nrsg): Saline [place] in Place (from Nrsg): No Subjective 24 Hr Interval Summary Patient is postop day #3 from multilevel lumbar decompression. He is doing well. He has been up ambulating with physical therapy and will likely be discharged to short-term rehab. Hemovac drain overnight was 10 cc and this was removed with RN assist. Incision is healing well. Neurovascular structures are intact distally Exam/Review of Systems Vital Signs Vitals Vital Signs Date Time Temp Pulse Resp B/P Pulse Ox O2 Delivery O2 Flow Rate FiO2 07/08/16 19:00 99.6 77 18 119/59 93 07/07/16 01:02 Nasal Cannula 1.0 Intake and Output 07/08/16 07/08/16 07/09/16 15:00 23:00 07:00 Intake Total 1520 ml 1500 ml Output Total 1260 ml 2310 ml Balance 260 ml -810 ml Results Result Diagram: 07/08/16 0425 07/08/16 0425 GEETA CLEMENT July 09, 2016 07:31
[2016-07-09 08:12] VITALS: BP 119/57; RESP 20
[2016-07-09] MEDS: DOCUSATE SODIUM 100 MG CAP PO SCH ×2 (09:46→20:04)
[2016-07-09] MEDS: RANITIDINE 150 MG TAB PO SCH ×2 (09:47→20:04)
[2016-07-09] MEDS: FERROUS SULFATE (EC) 325 MG TAB PO SCH ×3 (09:47→20:04)
[2016-07-09] MEDS: ASCORBIC ACID 500 MG TAB PO SCH ×2 (09:47→20:04)
[2016-07-09] MEDS: VALSARTAN 160 MG TAB PO SCH (09:48)
[2016-07-09] MEDS: HYDROCHLOROTHIAZIDE 25 MG TAB PO SCH (09:48)
[2016-07-09] MEDS: AMLODIPINE 2.5 MG TAB PO SCH (09:48)
[2016-07-09] MEDS: CLOTRIMAZOLE 1% 30 GM CR TOP SCH ×2 (09:50→20:04)
--- NOTE | 2016-07-09 17:34 | CONS ---
Date/Time of Note Date/Time of Note DATE: 07/09/16 TIME: 17:31 Assessment/Plan Assessment/Plan Problems: (1) Essential (primary) hypertension Status: Chronic Comment: Doing well. Controlled. Cont. antihypertensives for control if needed. (2) Aftercare following surgery of the musculoskeletal system Status: Acute Comment: Doing well POD#3. Ambulating. Pain well controlled. Pt. will go to ARU for further rehab. Consultation Date/Type/Reason Admit Date/Time July 06, 2016 at 07:55 Initial Consult Date 07/06/16 Type of Consultation: Medicine Reason for Consultation Medical management Referring Provider: GISELLA LOAIZA MD 24 HR Interval Summary Constitutional: improved, no complaints Detailed Summary Respiratory: no complaints Cardiovascular: no complaints Gastrointestinal: no complaints Genitourinary: no complaints Musculoskeletal: back pain (mild, ambulating ) Neurologic: no complaints Exam/Review of Systems Vital Signs Vitals VS - Last 72 Hours, by Label Date Time Temp Pulse Resp B/P Pulse Ox O2 Delivery O2 Flow Rate FiO2 07/09/16 08:12 98.6 78 20 119/57 97 07/08/16 19:00 99.6 77 18 119/59 93 07/08/16 07:00 98.7 89 16 111/54 94 07/07/16 20:57 99.1 98 20 100/58 97 07/07/16 08:34 98.5 95 16 98/47 95 07/07/16 08:30 19 07/07/16 06:04 18 07/07/16 01:02 98.6 103 18 128/76 98 Nasal Cannula 1.0 07/07/16 01:00 18 07/06/16 21:00 18 07/06/16 20:20 Nasal Cannula 2.0 07/06/16 19:51 98.5 94 18 116/62 95 Vital Signs Date Time Temp Pulse Resp B/P Pulse Ox O2 Delivery O2 Flow Rate FiO2 07/09/16 08:12 98.6 78 20 119/57 97 07/07/16 01:02 Nasal Cannula 1.0 Intake and Output 07/08/16 07/08/16 07/09/16 15:00 23:00 07:00 Intake Total 1520 ml 1500 ml Output Total 1260 ml 2310 ml Balance 260 ml -810 ml Exam Constitutional: alert, obese, oriented Psych: nl mood/affect, no complaints Respiratory: clear to auscultation, normal air movement Cardiovascular: nl pulses, regular rate and rhythm, No edema, No murmurs/extra sounds, No rub Gastrointestinal: bowel sounds, nl liver, spleen, non-tender, soft, No mass, No rebound or guarding Musculoskeletal: nl extremities to inspection Extremities: normal pulses, No clubbing, No cyanosis, No edema 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, nl mental status, nl speech, nl strength Results Result Diagram: 07/08/1642407/08/16424 Medications Medications Current Medications Lactated Ringer's (Lr) 1,000 ml @ 0 mls/hr Q0M IV ; Start 07/06/16 at 09:00 Acetaminophen/ Hydrocodone Bitart ([place] (5/325)) 1 tab Q4H PRN PO PAIN LEVEL 1 -5; Start 07/06/16 at 16:00 Acetaminophen/ Hydrocodone Bitart ([place] (5/325)) 2 tab Q4H PRN PO PAIN LEVEL 6 -10 Last administered on 07/09/16 15:18; Admin Dose 2 TAB; Start 07/06/16 at 16 :00 Zolpidem Tartrate (Ambien) 5 mg HS PRN PO INSOMNIA; Start 07/06/16 at 16:00 Prochlorperazine (Compazine) 10 mg Q4H PRN PO NAUSEA AND/OR VOMITING; Start at 16:00 Trimethobenzamide HCl (Tigan) 200 mg Q4H PRN IM NAUSEA AND/OR VOMITING; Start 07/06/16 at 16:00 Ondansetron HCl (Zofran Inj) 4 mg Q6H PRN IV NAUSEA AND/OR VOMITING; Start at 16:00 Al Hydrox/Mg Hydrox/Simethicone (Mag-Al Plus) 15 ml Q4H PRN PO CONSTIPATION; Start 07/06/16 at 16:00 Docusate Sodium (Colace) 100 mg BID PO Last administered on 07/09/16 09:46; Admin Dose 100 MG; Start 07/07/16 at 09:00 Acetaminophen (Tylenol Tab) 650 mg Q4H PRN PO TEMP GREATER THAN 101F OR CABRAL; Start 07/06/16 at 16:00 Ascorbic Acid (Vitamin C) 1,000 mg BID PO Last administered on 07/09/16 09:47 ; Admin Dose 1,000 MG; Start 07/07/16 at 09:00 Ferrous Sulfate (Ferrous Sulfate (Ec)) 325 mg TID PO Last administered on 12:34; Admin Dose 325 MG; Start 07/07/16 at 09:00 Ranitidine HCl (Zantac) 150 mg BID PO Last administered on 07/09/16 09:47; Admin Dose 150 MG; Start 07/06/16 at 21:00 Diazepam (Valium) 5 mg Q4H PRN PO MUSCLE SPASMS Last administered on 07/08/16 20:39; Admin Dose 5 MG; Start 07/06/16 at 16:00 Diazepam (Valium) 5 mg Q4H PRN IM MUSCLE SPASMS; Start 07/06/16 at 16:00 Phenol (Cepastat Lozenge) 1 lozenge PRN PRN MT SORE THROAT; Start 07/06/16 at 16:00 Diphenhydramine HCl (Benadryl) 50 mg Q6H PRN PO PRURITUS; Start 07/06/16 at 16: 00 Hydromorphone HCl (Dilaudid CLINICAL CARE MANAGER) Q4PCA IV Last administered on 07/06/16 16:13 ; Admin Dose 6 MG; Start 07/06/16 at 16:00 Naloxone HCl (Narcan) 0.2 mg Q2M PRN IV RR 8 BREATHS/MIN OR LESS; Start at 16:00 Amlodipine Besylate (Norvasc) 2.5 mg DAILY PO Last administered on 07/09/16 09 :48; Admin Dose 2.5 MG; Start 07/07/16 at 09:00 Valsartan (Diovan) 320 mg DAILY PO Last administered on 07/09/16 09:48; Admin Dose 320 MG; Start 07/07/16 at 09:00 Clotrimazole (Lotrimin Cr) 1 applic BID TOP Last administered on 07/09/16 09: 50; Admin Dose 1 APPLIC; Start 07/06/16 at 21:00 Hydrochlorothiazide (Hydrochlorothiazide) 25 mg DAILY PO Last administered on 09:48; Admin Dose 25 MG; Start 07/07/16 at 09:00 Bethanechol Chloride (Urecholine) 25 mg PRN PRN PO UNABLE TO VOID Last administered on 07/07/16t 14:54; Admin Dose 25 MG; Start 07/07/16 at 08:00 ASHLEY JEREZ MD July 09, 2016 17:34
[2016-07-09 19:26] VITALS: BP 103/51; RESP 20
== END 2016-07-09 19:30 | DRG 516 ==
LOC: REC 15:13 → UNDOADMIN 15:13 → REC 07-06 07:55 → MS1 07-06 17:17
PROVIDERS: ADMIT Orthopaedic Surgery; ATTEND Orthopaedic Surgery
PROC: 4A11X4G Monitoring of Peripheral Nervous Electrical Activity, Intraoperative, External Approach (ICD-10-PCS; 2016-07-06)
PROC: 01NB0ZZ Release Lumbar Nerve, Open Approach (ICD-10-PCS; principal; 2016-07-06 10:30)
DX: M48.06 Spinal stenosis, lumbar region (principal); Z68.42 Body mass index [BMI] 45.0-49.9, adult; I10 Essential (primary) hypertension; M54.16 Radiculopathy, lumbar region; B35.3 Tinea pedis; E66.01 Morbid (severe) obesity due to excess calories
CPT/HCPCS: 72020; 80048; 81001; 85014; 85018; 85025; 86850; 86900; 86901; 86920; 87086; 97116; 97163; 97530; J0360; J0690; J1100; J1170; J1885; J2250; J2270; J2370; J2405; J2710; J2765; J3010; J7042; J7999

== ENCOUNTER 2016-07-09 15:36 | Inpatient (IN) | payer OTHER ==
[~2016-07-09] VITALS: Ht 188 cm; Wt 208.0 kg
[~2016-07-09 15:36] MED LIST: AMLO2.5T78 PO; HYDR-902 PO; METH500T8 PO; VALS1TAB82 PO
[2016-07-09 20:00] VITALS: Ht 188 cm; Wt 208.0 kg
[2016-07-09 22:00] VITALS: BP 87/48; RESP 19
[2016-07-09] MEDS ORDERED: NALOXONE (0.4 MG/ML) INJ IV PRN (22:30)
[2016-07-09] MEDS ORDERED: DIPHENHYDRAMINE 50 MG CAP PO PRN (22:30)
[2016-07-09] MEDS ORDERED: AL HYDROX/MG HYDROX/SIMETH 30 ML CUP PO PRN (22:30)
[2016-07-09] MEDS ORDERED: ONDANSETRON 4 MG INJ IV PRN (22:30)
[2016-07-09] MEDS ORDERED: NACL 0.9% 3 ML SYG IV SCH (22:30)
[2016-07-09] MEDS ORDERED: ACETAMINOPHEN 325 MG TAB PO PRN (22:30)
[2016-07-09] MEDS ORDERED: PROCHLORPERAZINE 10 MG TAB PO PRN (22:30)
[2016-07-09 22:34] VITALS: BP 121/62; RESP 19
[2016-07-09] MEDS ORDERED: TRIMETHOBENZAMIDE 100 MG/ML VIAL IM PRN (23:00)
[2016-07-09] MEDS: DOCUSATE SODIUM 100 MG CAP PO SCH (23:30)
[2016-07-09] MEDS: ASCORBIC ACID 500 MG TAB PO SCH (23:30)
[2016-07-09] MEDS: FERROUS SULFATE (EC) 325 MG TAB PO SCH (23:30)
[2016-07-09] MEDS: RANITIDINE 150 MG TAB PO SCH (23:30)
[2016-07-09] MEDS: CLOTRIMAZOLE 1% 30 GM CR TOP SCH (23:30)
[2016-07-10 00:02] LABS: ADD UMIC NO; URINE BILIRUBIN (Dip) NEGATIVE (NEGATIVE); URINE BLOOD (Dip) NEGATIVE (NEGATIVE); URINE COLOR LT. YELLOW (YELLOW); URINE GLUCOSE (Dip) NEGATIVE (NEGATIVE); URINE KETONES (Dip) NEGATIVE (NEGATIVE); URINE LEUKOCYTE ESTERASE (Dip) NEGATIVE (NEGATIVE); URINE NITRITE (Dip) NEGATIVE (NEGATIVE); URINE TOTAL PROTEIN (Dip) NEGATIVE (NEGATIVE); URINE UROBILINOGEN (Dip) 0.2 E.U./dL (0.1-1.0)
[2016-07-10] MEDS: DIAZEPAM 5 MG TAB PO PRN ×2 (01:06→20:57)
[2016-07-10] MEDS ORDERED: BISACODYL 10 MG SUPP PR PRN (04:30)
[2016-07-10] MEDS ORDERED: LACTULOSE 30ML CUP PO PRN (04:30)
[2016-07-10] MEDS ORDERED: MAGNESIUM HYDROXIDE 30ML CUP PO PRN (04:30)
[2016-07-10 06:48] LABS: ADD SCAN DIFF NO
[2016-07-10 07:05] LABS: BASOPHILS % 0.4 % (0.0-2.0); EOSINOPHILS # 0.3 10^3/ul (0.0-0.5); EOSINOPHILS % 2.5 % (0.0-7.0); HEMATOCRIT 29.9 % (42.0-52.0); HEMOGLOBIN 9.3 g/dl (14.0-18.0); LYMPHOCYTES # 1.1 10^3/ul (0.8-2.9); LYMPHOCYTES % 10.3 % (15.0-51.0); MEAN CORPUSCULAR HEMOGLOBIN 27.5 pg (29.0-33.0); MEAN CORPUSCULAR HGB CONC 31.1 g/dl (32.0-37.0); MEAN CORPUSCULAR VOLUME 88.5 fl (82.0-101.0); MEAN PLATELET VOLUME 10.7 fl (7.4-10.4); MONOCYTE # 1.1 10^3/ul (0.3-0.9); MONOCYTES % 10.4 % (0.0-11.0); NEUTROPHIL # 8.3 10^3/ul (1.6-7.5); NEUTROPHILS % 75.9 % (39.0-77.0); PLATELET COUNT 212 10^3/UL (140-415); RED BLOOD COUNT 3.38 10^6/ul (4.70-6.10); RED CELL DISTRIBUTION WIDTH 14.6 % (11.5-14.5); WHITE BLOOD COUNT 10.9 10^3/ul (4.8-10.8)
[2016-07-10 07:07] LABS: ALBUMIN 2.9 g/dl (3.3-4.9); POTASSIUM 4.4 mmol/L (3.5-5.1)
[2016-07-10 07:09] LABS: CREATININE 1.11 mg/dl (0.61-1.24)
[2016-07-10 07:10] LABS: ALBUMIN/GLOBULIN RATIO 0.93; BILIRUBIN,INDIRECT 0.7 mg/dl (0-1.1); BILIRUBIN,TOTAL 0.7 mg/dl (0.2-1.3); CALCIUM 8.2 mg/dl (8.4-10.2)
[2016-07-10 07:36] VITALS: BP 111/52; RESP 18
[2016-07-10] MEDS: VALSARTAN 160 MG TAB PO SCH (09:00)
[2016-07-10] MEDS: HYDROCHLOROTHIAZIDE 25 MG TAB PO SCH (09:00)
[2016-07-10] MEDS: AMLODIPINE 2.5 MG TAB PO SCH (09:00)
[2016-07-10] MEDS: DOCUSATE SODIUM 100 MG CAP PO SCH ×2 (09:23→20:54)
[2016-07-10] MEDS: HYDROCODONE/APAP (5/325) TAB PO PRN (09:23)
[2016-07-10] MEDS: RANITIDINE 150 MG TAB PO SCH ×2 (09:23→20:54)
[2016-07-10] MEDS: ASCORBIC ACID 500 MG TAB PO SCH ×2 (09:23→20:54)
[2016-07-10] MEDS: CLOTRIMAZOLE 1% 30 GM CR TOP SCH ×2 (09:23→20:55)
[2016-07-10] MEDS: FERROUS SULFATE (EC) 325 MG TAB PO SCH ×3 (09:23→20:54)
--- NOTE | 2016-07-10 12:13 | CONS ---
DATE OF ADMISSION: 07/09/2016 DATE OF CONSULTATION: 07/10/2016 TYPE OF CONSULTATION: Rehabilitation post admission physician evaluation. REHABILITATION IMPAIRMENT CATEGORY: Multilevel lumbar spinal stenosis with radiculopathy status post decompressive laminectomy. ACTIVE COMORBIDITIES: 1. Hypertension. 2. Morbid obesity. 3. Acute pain syndrome. 4. Impairments in self-care and mobility. HISTORY OF PRESENT ILLNESS: The patient is a pleasant 55-year-old gentleman with a history of hypertension and obesity and also left knee meniscal tear who has been having increasing low back pain and worsening mobility despite conservative measures. The patient underwent decompressive lumbar laminectomy 07/06/2016. The patient's hospital course has been notable for significant impairments in self-care and mobility as compared to baseline and the patient has been cleared to transfer to the rehabilitation unit for comprehensive interdisciplinary rehab care. FUNCTIONAL HISTORY: Prior to recent events, he was independent in self-care tasks and mobility. Currently, the patient requires minimal assist for self-care and mobility tasks. I have reviewed the preadmission screen and the patient's current functional status is consistent with the preadmission screen. SOCIAL HISTORY: The patient reports living at home and hopes to return there upon discharge. PAST MEDICAL HISTORY: 1. Hypertension. 2. Left knee injury. 3. Lumbar radiculopathy. CURRENT MEDICATIONS: 1. [place] p.r.n. 2. Ambien p.r.n. 3. Colace 100 mg b.i.d. 4. Vitamin C. 5. Ferrous sulfate. 6. Zantac 150 p.o. b.i.d. 7. Diovan 320 p.o. daily. 8. Hydrochlorothiazide 25 mg p.o. daily. ALLERGIES: THE PATIENT WITH NO KNOWN DRUG ALLERGIES. PHYSICAL EXAMINATION: VITAL SIGNS: The patient is currently afebrile with stable vital signs. HEENT: Extraocular motion intact. Oropharynx clear. NECK: Supple. LUNGS: Clear anteriorly. CARDIAC: S1, S2. ABDOMEN: Soft, nontender, positive bowel sounds. NEUROLOGIC: He is awake and alert and oriented x3, can follow simple 1-step commands. Cranial nerves are grossly intact. He has good strength in bilateral upper extremity, does have antigravity strength in bilateral lower extremities. PLAN: The patient has been admitted for comprehensive interdisciplinary acute rehab and is anticipated to tolerate 3 hours of daily therapy in divided doses for at least 5/7 days a week. Treatment plan will include: 1. Physical therapy to focus on bed mobility, transfers, and household ambulation with the goal of having the patient reach standby assist level. 2. Occupational therapy to focus on hygiene, grooming, dressing, bathing, and toileting activities with the goal of having the patient reach standby assist level. 3. Rehabilitation nursing for carryover of therapeutic interventions, the goal of continent of bowel and bladder, and the goal of pain adequately managed on oral medications. ESTIMATED LENGTH OF STAY: 10 days. DISPOSITION GOAL: Home. Rehabilitation Barrier: Pain Intervention for barrier: Interdisciplinary rehabilitation I acknowledge that I performed a full physical examination on this patient within 24 hours of admission to the rehabilitation unit and I believe the patient is a good candidate for comprehensive interdisciplinary rehab care and is anticipated to make reasonable goals in a reasonable period of time as outlined above. Dictated By: PITER DE LEÓN/EDMUND Conf#: [id number] DID#: [id number] MTDCrystal
--- NOTE | 2016-07-10 17:11 | PN ---
Date/Time of Note Date/Time of Note DATE: 07/10/16 TIME: 17:07 Assessment/Plan VTE Prophylaxis VTE Prophylaxis Intervention: ambulation, SCD's Lines/Catheters Urinary Cath still in place: No Assessment/Plan Problems: (1) Essential (primary) hypertension Status: Chronic Comment: Ongoing good BP control w/ BP meds on hold. (2) Aftercare following surgery of the musculoskeletal system Status: Acute Comment: Doing well POD# 4. Now ambulating in rehab. Cont. PT per PM&R. Will follow with you. Subjective 24 Hr Interval Summary Constitutional: improved, no complaints Respiratory: no complaints Cardiovascular: no complaints Gastrointestinal: no complaints Genitourinary: no complaints Musculoskeletal: no complaints Neurologic: no complaints Exam/Review of Systems Vital Signs Vitals VS - Last 72 Hours, by Label Date Time Temp Pulse Resp B/P Pulse Ox O2 Delivery O2 Flow Rate FiO2 07/10/16 07:36 98.8 78 18 111/52 96 07/09/16 22:34 99.2 86 19 121/62 96 07/09/16 22:00 100.1 92 19 87/48 98 Vital Signs Date Time Temp Pulse Resp B/P Pulse Ox O2 Delivery O2 Flow Rate FiO2 07/10/16 07:36 98.8 78 18 111/52 96 Intake and Output 07/09/16 07/09/16 07/10/16 15:00 23:00 07:00 Intake Total 1170 ml Output Total 1550 ml Balance -380 ml Exam Constitutional: alert, obese, oriented Psych: nl mood/affect, no complaints Respiratory: clear to auscultation, normal air movement Cardiovascular: nl pulses, regular rate and rhythm, No edema, No murmurs/extra sounds, No rub Gastrointestinal: bowel sounds, nl liver, spleen, non-tender, soft, No mass, No rebound or guarding Musculoskeletal: nl extremities to inspection Extremities: normal pulses, No clubbing, No cyanosis, No edema 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: PARAPLANNER II-XII intact, nl mental status, nl speech, nl strength Results Result Diagram: 07/10/1660407/10/16604 Results 24 hrs Laboratory Tests Test 07/09/16 23:30 07/10/16 06:05 Urine Color LT. YELLOW Urine Clarity CLEAR Urine pH 6.0 Urine Specific [place] <=1.005 L Urine Ketones NEGATIVE Urine Nitrite NEGATIVE Urine Bilirubin NEGATIVE Urine Urobilinogen 0.2 E.U./dL Urine Leukocyte Esterase NEGATIVE Urine Hemoglobin NEGATIVE Urine Glucose NEGATIVE Urine Total Protein NEGATIVE White Blood Count 10.9 #H Red Blood Count 3.38 L Hemoglobin 9.3 L Hematocrit 29.9 L Mean Corpuscular Volume 88.5 Mean Corpuscular Hemoglobin 27.5 L Mean Corpuscular Hemoglobin Concent 31.1 L Red Cell Distribution Width 14.6 H Platelet Count 212 Mean Platelet Volume 10.7 H Neutrophils % 75.9 Lymphocytes % 10.3 L Monocytes % 10.4 Eosinophils % 2.5 Basophils % 0.4 Nucleated Red Blood Cells % 0.0 Neutrophils # 8.3 H Lymphocytes # 1.1 Monocytes # 1.1 H Eosinophils # 0.3 Basophils # 0.0 Nucleated Red Blood Cells # 0.0 Sodium Level 139 Potassium Level 4.4 Chloride Level 100 Carbon Dioxide Level 31 Anion Gap 12 Blood Urea Nitrogen 14 Creatinine 1.11 Glucose Level 103 Calcium Level 8.2 L Total Bilirubin 0.7 Direct Bilirubin 0.00 Indirect Bilirubin 0.7 Aspartate Amino Transf (AST/SGOT) 78 H Alanine Aminotransferase (ALT/SGPT) 54 Alkaline Phosphatase 58 Total Protein 6.0 L Albumin 2.9 L Globulin 3.10 Albumin/Globulin Ratio 0.93 Medications Medications Current Medications Valsartan (Diovan) 320 mg DAILY PO ; Start 07/10/16 at 09:00 Zolpidem Tartrate (Ambien) 5 mg HS PRN PO INSOMNIA; Start 07/09/16 at 22:30 Hydrochlorothiazide (Hydrochlorothiazide) 25 mg DAILY PO ; Start 07/10/16 at 09: 00 Acetaminophen/ Hydrocodone Bitart ([place] (5/325)) 1 tab Q4H PRN PO PAIN; Start 07/09/16 at 22:30 Acetaminophen/ Hydrocodone Bitart ([place] (5/325)) 2 tab Q4H PRN PO PAIN Last administered on 07/10/16t 09:23; Admin Dose 2 TAB; Start 07/09/16 at 22:30 Naloxone HCl (Narcan) 0.2 mg Q2M PRN IV DECREASED REPIRATORY RATE; Start at 22:30 Ondansetron HCl (Zofran Inj) 4 mg Q6H PRN IV NAUSEA AND/OR VOMITING; Start at 22:30 Prochlorperazine (Compazine) 10 mg Q4H PRN PO NAUSEA AND/OR VOMITING; Start at 22:30 Ranitidine HCl (Zantac) 150 mg BID PO Last administered on 07/10/16 09:23; Admin Dose 150 MG; Start 07/09/16 at 23:00 Trimethobenzamide HCl (Tigan) 200 mg Q4H PRN IM NAUSEA AND/OR VOMITING; Start 07/09/16 at 23:00 Acetaminophen (Tylenol Tab) 650 mg Q4H PRN PO PAIN AND OR ELEVATED TEMP; Start 07/09/16 at 22:30 Al Hydrox/Mg Hydrox/Simethicone (Mag-Al Plus) 15 ml Q4H PRN PO GASTROINTESTINAL UPSET; Start 07/09/16 at 22:30 Amlodipine Besylate (Norvasc) 2.5 mg DAILY PO ; Start 07/10/16 at 09:00 Ascorbic Acid (Vitamin C) 1,000 mg BID PO Last administered on 07/10/16 09:23 ; Admin Dose 1,000 MG; Start 07/09/16 at 23:00 Clotrimazole (Lotrimin Cr) 1 applic BID TOP Last administered on 07/10/16 09: 23; Admin Dose 1 APPLIC; Start 07/09/16 at 23:00 Diazepam (Valium) 5 mg Q4H PRN PO MUSCLE SPASM Last administered on 07/10/16 01:06; Admin Dose 5 MG; Start 07/09/16 at 23:00 Diphenhydramine HCl (Benadryl) 50 mg Q6H PRN PO ALLERGIC REACTION; Start at 22:30 Docusate Sodium (Colace) 100 mg BID PO Last administered on 07/10/16 09:23; Admin Dose 100 MG; Start 07/09/16 at 23:00 Ferrous Sulfate (Ferrous Sulfate (Ec)) 325 mg TID PO Last administered on 12:42; Admin Dose 325 MG; Start 07/09/16 at 23:00 Bisacodyl (Dulcolax Supp) 10 mg DAILY PRN [place] CONSTIPATION; Start 07/10/16 at 04 :30 Senna (Senokot) 1 tab HS PO ; Start 07/10/16 at 21:00 Magnesium Hydroxide (Milk Of Mag) 30 ml BID PRN PO CONSTIPATION; Start at 04:30 Lactulose (Enulose) 20 gm DAILY PRN PO CONSTIPATION; Start 07/10/16 at 04:30 ASHLEY JEREZ MD July 10, 2016 17:11
[2016-07-10 20:00] VITALS: BP 118/55; RESP 18
[2016-07-10] MEDS: SENNA TAB PO SCH (20:54)
[2016-07-11] MEDS: ZOLPIDEM 5 MG TAB PO PRN ×2 (00:46→23:05)
[2016-07-11] MEDS: HYDROCODONE/APAP (5/325) TAB PO PRN ×2 (06:28→20:26)
[2016-07-11 07:30] VITALS: BP 125/65; RESP 18
[2016-07-11] MEDS: ASCORBIC ACID 500 MG TAB PO SCH ×2 (09:21→20:20)
[2016-07-11] MEDS: VALSARTAN 160 MG TAB PO SCH (09:21)
[2016-07-11] MEDS: AMLODIPINE 2.5 MG TAB PO SCH (09:21)
[2016-07-11] MEDS: RANITIDINE 150 MG TAB PO SCH ×2 (09:21→20:27)
[2016-07-11] MEDS: FERROUS SULFATE (EC) 325 MG TAB PO SCH ×3 (09:21→20:20)
[2016-07-11] MEDS: CLOTRIMAZOLE 1% 30 GM CR TOP SCH ×2 (09:22→20:21)
[2016-07-11] MEDS: DOCUSATE SODIUM 100 MG CAP PO SCH ×2 (09:24→20:27)
[2016-07-11] MEDS: HYDROCHLOROTHIAZIDE 25 MG TAB PO SCH (11:00)
--- NOTE | 2016-07-11 12:33 | PN ---
Date/Time of Note Date/Time of Note DATE: 07/11/16 TIME: 12:28 Assessment/Plan VTE Prophylaxis VTE Prophylaxis Intervention: SCD's Lines/Catheters Urinary Cath still in place: No Assessment/Plan Assessment/Plan 1. Multilevel lumbar spinal canal stenosis L2-L5 with radiculopathy status post decompressive laminectomy, Medial facetectomy and foraminotomy, with impaired mobility/gait/ADLs. Continue PT/OT. Mod assist for bed mobility and transfers. 2. Acute postoperative pain syndrome with baseline chronic pain syndrome. Continue pain regimen including prn norco. 3. Hypertension. BP controlled. Continue to monitor. 4. Morbid obesity. 5. UTI. On antibiotics per internal medicine. Monitor WBCs and temp curve trend. 6. Anemia. On iron supplementation. Continue to monitor hemoglobin/hematocrit. Subjective 24 Hr Interval Summary Free Text/Dictation Rehab progress note Subjective: Reports moderate pain in low back earlier, alleviated with pain meds. ROS: Denies chest pain, no shortness of breath, no abdominal pain, no nausea, no vomiting. Reports last bowel movement 2 days ago. Exam/Review of Systems Vital Signs Vitals Vital Signs Date Time Temp Pulse Resp B/P Pulse Ox O2 Delivery O2 Flow Rate FiO2 07/11/16 07:30 98.3 74 18 125/65 95 Intake and Output 07/10/16 07/10/16 07/11/16 15:00 23:00 07:00 Intake Total 600 ml 1200 ml 550 ml Output Total 200 ml 750 ml 1700 ml Balance 400 ml 450 ml -1150 ml Exam General: Awake, alert, no acute distress CV: Regular rate, s1s2 Lungs: Clear to auscultation, no wheezing Abdomen soft, nontender Extremities without cyanosis, no new swelling Neuro: Antigravity strength BUE/BLE. Follows simple commands. Results Result Diagram: 07/10/1660407/10/16604 Medications Medications Current Medications Valsartan (Diovan) 320 mg DAILY PO Last administered on 07/11/16 09:21; Admin Dose 320 MG; Start 07/10/16 at 09:00 Zolpidem Tartrate (Ambien) 5 mg HS PRN PO INSOMNIA Last administered on 00:46; Admin Dose 5 MG; Start 07/09/16 at 22:30 Hydrochlorothiazide (Hydrochlorothiazide) 25 mg DAILY PO ; Start 07/10/16 at 09: 00 Acetaminophen/ Hydrocodone Bitart ([place] (5/325)) 1 tab Q4H PRN PO PAIN; Start 07/09/16 at 22:30 Acetaminophen/ Hydrocodone Bitart ([place] (5/325)) 2 tab Q4H PRN PO PAIN Last administered on 07/11/16 06:28; Admin Dose 2 TAB; Start 07/09/16 at 22:30 Naloxone HCl (Narcan) 0.2 mg Q2M PRN IV DECREASED REPIRATORY RATE; Start at 22:30 Ondansetron HCl (Zofran Inj) 4 mg Q6H PRN IV NAUSEA AND/OR VOMITING; Start at 22:30 Prochlorperazine (Compazine) 10 mg Q4H PRN PO NAUSEA AND/OR VOMITING; Start at 22:30 Ranitidine HCl (Zantac) 150 mg BID PO Last administered on 07/11/16 09:21; Admin Dose 150 MG; Start 07/09/16 at 23:00 Trimethobenzamide HCl (Tigan) 200 mg Q4H PRN IM NAUSEA AND/OR VOMITING; Start 07/09/16 at 23:00 Acetaminophen (Tylenol Tab) 650 mg Q4H PRN PO PAIN AND OR ELEVATED TEMP; Start 07/09/16 at 22:30 Al Hydrox/Mg Hydrox/Simethicone (Mag-Al Plus) 15 ml Q4H PRN PO GASTROINTESTINAL UPSET; Start 07/09/16 at 22:30 Amlodipine Besylate (Norvasc) 2.5 mg DAILY PO Last administered on 07/11/16 09 :21; Admin Dose 2.5 MG; Start 07/10/16 at 09:00 Ascorbic Acid (Vitamin C) 1,000 mg BID PO Last administered on 07/11/16 09:21 ; Admin Dose 1,000 MG; Start 07/09/16 at 23:00 Clotrimazole (Lotrimin Cr) 1 applic BID TOP Last administered on 07/11/16 09: 22; Admin Dose 1 APPLIC; Start 07/09/16 at 23:00 Diazepam (Valium) 5 mg Q4H PRN PO MUSCLE SPASM Last administered on 07/10/16 20:57; Admin Dose 5 MG; Start 07/09/16 at 23:00 Diphenhydramine HCl (Benadryl) 50 mg Q6H PRN PO ALLERGIC REACTION; Start at 22:30 Docusate Sodium (Colace) 100 mg BID PO Last administered on 07/11/16 09:24; Admin Dose 100 MG; Start 07/09/16 at 23:00 Ferrous Sulfate (Ferrous Sulfate (Ec)) 325 mg TID PO Last administered on 09:21; Admin Dose 325 MG; Start 07/09/16 at 23:00 Bisacodyl (Dulcolax Supp) 10 mg DAILY PRN [place] CONSTIPATION; Start 07/10/16 at 04 :30 Senna (Senokot) 1 tab HS PO Last administered on 07/10/16 20:54; Admin Dose 1 TAB; Start 07/10/16 at 21:00 Magnesium Hydroxide (Milk Of Mag) 30 ml BID PRN PO CONSTIPATION; Start at 04:30 Lactulose (Enulose) 20 gm DAILY PRN PO CONSTIPATION; Start 07/10/16 at 04:30 Nitrofurantoin Macrocrystals (Macrobid) 100 mg BID PO ; Start 07/11/16 at 13:00 ; Stop 07/18/16 at 12:59 SVITLANA LUBIN July 11, 2016 12:33
--- NOTE | 2016-07-11 13:00 | PN ---
Date/Time of Note Date/Time of Note DATE: 07/11/16 TIME: 12:56 Assessment/Plan VTE Prophylaxis VTE Prophylaxis Intervention: ambulation Lines/Catheters Urinary Cath still in place: No Assessment/Plan Problems: (1) Essential (primary) hypertension Status: Chronic Comment: Controlled. Cont. antihypertensives. (2) Aftercare following surgery of the musculoskeletal system Status: Acute Comment: Doing well POD#5. Cont. rehab. Subjective 24 Hr Interval Summary Constitutional: no complaints Respiratory: no complaints Cardiovascular: no complaints Gastrointestinal: no complaints Genitourinary: no complaints Musculoskeletal: back pain (did not take prophylactic pain pill today before PT. Will do that tomorrow) Neurologic: no complaints Exam/Review of Systems Vital Signs Vitals VS - Last 72 Hours, by Label Date Time Temp Pulse Resp B/P Pulse Ox O2 Delivery O2 Flow Rate FiO2 07/11/16 07:30 98.3 74 18 125/65 95 07/10/16 20:00 98.9 82 18 118/55 98 07/10/16 07:36 98.8 78 18 111/52 96 07/09/16 22:34 99.2 86 19 121/62 96 07/09/16 22:00 100.1 92 19 87/48 98 Vital Signs Date Time Temp Pulse Resp B/P Pulse Ox O2 Delivery O2 Flow Rate FiO2 07/11/16 07:30 98.3 74 18 125/65 95 Intake and Output 07/10/16 07/10/16 07/11/16 15:00 23:00 07:00 Intake Total 600 ml 1200 ml 550 ml Output Total 200 ml 750 ml 1700 ml Balance 400 ml 450 ml -1150 ml Exam Constitutional: alert, obese, oriented Psych: nl mood/affect, no complaints Respiratory: clear to auscultation, normal air movement Cardiovascular: nl pulses, regular rate and rhythm, No edema, No murmurs/extra sounds, No rub Gastrointestinal: bowel sounds, nl liver, spleen, non-tender, soft, No mass, No rebound or guarding Musculoskeletal: nl extremities to inspection Extremities: normal pulses, No clubbing, No cyanosis, No edema 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: 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 ORTHOPTIST II-XII 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, nl mental status, nl speech, nl strength Results Result Diagram: 07/10/1660407/10/16604 Medications Medications Current Medications Valsartan (Diovan) 320 mg DAILY PO Last administered on 07/11/16 09:21; Admin Dose 320 MG; Start 07/10/16 at 09:00 Zolpidem Tartrate (Ambien) 5 mg HS PRN PO INSOMNIA Last administered on 00:46; Admin Dose 5 MG; Start 07/09/16 at 22:30 Hydrochlorothiazide (Hydrochlorothiazide) 25 mg DAILY PO ; Start 07/10/16 at 09: 00 Acetaminophen/ Hydrocodone Bitart ([place] (5/325)) 1 tab Q4H PRN PO PAIN; Start 07/09/16 at 22:30 Acetaminophen/ Hydrocodone Bitart ([place] (5/325)) 2 tab Q4H PRN PO PAIN Last administered on 07/11/16 06:28; Admin Dose 2 TAB; Start 07/09/16 at 22:30 Naloxone HCl (Narcan) 0.2 mg Q2M PRN IV DECREASED REPIRATORY RATE; Start at 22:30 Ondansetron HCl (Zofran Inj) 4 mg Q6H PRN IV NAUSEA AND/OR VOMITING; Start at 22:30 Prochlorperazine (Compazine) 10 mg Q4H PRN PO NAUSEA AND/OR VOMITING; Start at 22:30 Ranitidine HCl (Zantac) 150 mg BID PO Last administered on 07/11/16 09:21; Admin Dose 150 MG; Start 07/09/16 at 23:00 Trimethobenzamide HCl (Tigan) 200 mg Q4H PRN IM NAUSEA AND/OR VOMITING; Start 07/09/16 at 23:00 Acetaminophen (Tylenol Tab) 650 mg Q4H PRN PO PAIN AND OR ELEVATED TEMP; Start 07/09/16 at 22:30 Al Hydrox/Mg Hydrox/Simethicone (Mag-Al Plus) 15 ml Q4H PRN PO GASTROINTESTINAL UPSET; Start 07/09/16 at 22:30 Amlodipine Besylate (Norvasc) 2.5 mg DAILY PO Last administered on 07/11/16 09 :21; Admin Dose 2.5 MG; Start 07/10/16 at 09:00 Ascorbic Acid (Vitamin C) 1,000 mg BID PO Last administered on 07/11/16 09:21 ; Admin Dose 1,000 MG; Start 07/09/16 at 23:00 Clotrimazole (Lotrimin Cr) 1 applic BID TOP Last administered on 07/11/16 09: 22; Admin Dose 1 APPLIC; Start 07/09/16 at 23:00 Diazepam (Valium) 5 mg Q4H PRN PO MUSCLE SPASM Last administered on 07/10/16 20:57; Admin Dose 5 MG; Start 07/09/16 at 23:00 Diphenhydramine HCl (Benadryl) 50 mg Q6H PRN PO ALLERGIC REACTION; Start at 22:30 Docusate Sodium (Colace) 100 mg BID PO Last administered on 07/11/16 09:24; Admin Dose 100 MG; Start 07/09/16 at 23:00 Ferrous Sulfate (Ferrous Sulfate (Ec)) 325 mg TID PO Last administered on 09:21; Admin Dose 325 MG; Start 07/09/16 at 23:00 Bisacodyl (Dulcolax Supp) 10 mg DAILY PRN [place] CONSTIPATION; Start 07/10/16 at 04 :30 Senna (Senokot) 1 tab HS PO Last administered on 07/10/16 20:54; Admin Dose 1 TAB; Start 07/10/16 at 21:00 Magnesium Hydroxide (Milk Of Mag) 30 ml BID PRN PO CONSTIPATION; Start at 04:30 Lactulose (Enulose) 20 gm DAILY PRN PO CONSTIPATION; Start 07/10/16 at 04:30 Nitrofurantoin Macrocrystals (Macrobid) 100 mg BID PO ; Start 07/11/16 at 13:00 ; Stop 07/18/16 at 12:59 ASHLEY JEREZ MD July 11, 2016 13:00
[2016-07-11] MEDS: NITROFURANTOIN (SR) 100 MG CAP PO SCH ×2 (17:17→20:20)
[2016-07-11] MEDS: DIAZEPAM 5 MG TAB PO PRN (19:49)
[2016-07-11 20:00] VITALS: BP 138/96; RESP 18
[2016-07-11] MEDS: SENNA TAB PO SCH (20:27)
[2016-07-12 08:00] VITALS: BP 115/53; PULSE 71; RESP 19
[2016-07-12] MEDS: ASCORBIC ACID 500 MG TAB PO SCH ×2 (08:45→20:28)
[2016-07-12] MEDS: DOCUSATE SODIUM 100 MG CAP PO SCH ×2 (08:45→20:28)
[2016-07-12] MEDS: NITROFURANTOIN (SR) 100 MG CAP PO SCH ×2 (08:45→20:28)
[2016-07-12] MEDS: RANITIDINE 150 MG TAB PO SCH ×2 (08:45→20:28)
[2016-07-12] MEDS: FERROUS SULFATE (EC) 325 MG TAB PO SCH ×3 (08:45→20:28)
[2016-07-12] MEDS: CLOTRIMAZOLE 1% 30 GM CR TOP SCH ×2 (08:46→20:28)
[2016-07-12] MEDS: HYDROCHLOROTHIAZIDE 25 MG TAB PO SCH (08:48)
[2016-07-12] MEDS: AMLODIPINE 2.5 MG TAB PO SCH (08:48)
[2016-07-12] MEDS: VALSARTAN 160 MG TAB PO SCH (08:48)
--- NOTE | 2016-07-12 09:04 | PN ---
Date/Time of Note Date/Time of Note DATE: 07/12/16 TIME: 09:01 Assessment/Plan VTE Prophylaxis VTE Prophylaxis Intervention: SCD's Lines/Catheters Urinary Cath still in place: No Assessment/Plan Assessment/Plan 1. Multilevel lumbar spinal canal stenosis with radiculopathy status post decompressive laminectomy, Medial facetectomy and foraminotomy, with impaired mobility/gait/ADLs. Continue PT/OT. Requires max assist for lower body dressing , min to mod assist for toileting. 2. Acute postoperative pain syndrome with history of chronic pain syndrome. Pain controlled. Continue prn norco and valium. 3. Hypertension. BP controlled. Continue current medical management. 4. Morbid obesity. 5. UTI. On antibiotics per internal medicine. 6. Anemia. Continue to monitor hemoglobin/hematocrit. 7. Depressed Mood. Will request psychology evaluation. Subjective 24 Hr Interval Summary Free Text/Dictation Rehab progress note Subjective: Patient reports minimal back pain currently. Reports bowel movement yesterday. ROS: Denies chest pain, no shortness of breath, no abdominal pain, no nausea, no vomiting, no chills. Exam/Review of Systems Vital Signs Vitals Vital Signs Date Time Temp Pulse Resp B/P Pulse Ox O2 Delivery O2 Flow Rate FiO2 07/11/16 20:00 98.5 72 18 138/96 95 Intake and Output 07/11/16 07/11/16 07/12/16 15:00 23:00 07:00 Intake Total 820 ml 1550 ml Output Total 450 ml 320 ml 2350 ml Balance -450 ml 500 ml -800 ml Exam General: Awake, alert, no acute distress CV: Regular rate, s1s2 Lungs: Clear to auscultation, no wheezing or crackles Abdomen soft, nontender, +bowel sounds Extremities without cyanosis, no new swelling Neuro: No new focal changes. Follows simple commands. Results Result Diagram: 07/10/1660407/10/16604 Medications Medications Current Medications Valsartan (Diovan) 320 mg DAILY PO Last administered on 07/11/16 09:21; Admin Dose 320 MG; Start 07/10/16 at 09:00 Zolpidem Tartrate (Ambien) 5 mg HS PRN PO INSOMNIA Last administered on 23:05; Admin Dose 5 MG; Start 07/09/16 at 22:30 Hydrochlorothiazide (Hydrochlorothiazide) 25 mg DAILY PO ; Start 07/10/16 at 09: 00 Acetaminophen/ Hydrocodone Bitart ([place] (5/325)) 1 tab Q4H PRN PO PAIN; Start 07/09/16 at 22:30 Acetaminophen/ Hydrocodone Bitart ([place] (5/325)) 2 tab Q4H PRN PO PAIN Last administered on 07/11/16 20:26; Admin Dose 2 TAB; Start 07/09/16 at 22:30 Naloxone HCl (Narcan) 0.2 mg Q2M PRN IV DECREASED REPIRATORY RATE; Start at 22:30 Ondansetron HCl (Zofran Inj) 4 mg Q6H PRN IV NAUSEA AND/OR VOMITING; Start at 22:30 Prochlorperazine (Compazine) 10 mg Q4H PRN PO NAUSEA AND/OR VOMITING; Start at 22:30 Ranitidine HCl (Zantac) 150 mg BID PO Last administered on 07/12/16 08:45; Admin Dose 150 MG; Start 07/09/16 at 23:00 Trimethobenzamide HCl (Tigan) 200 mg Q4H PRN IM NAUSEA AND/OR VOMITING; Start 07/09/16 at 23:00 Acetaminophen (Tylenol Tab) 650 mg Q4H PRN PO PAIN AND OR ELEVATED TEMP; Start 07/09/16 at 22:30 Al Hydrox/Mg Hydrox/Simethicone (Mag-Al Plus) 15 ml Q4H PRN PO GASTROINTESTINAL UPSET; Start 07/09/16 at 22:30 Amlodipine Besylate (Norvasc) 2.5 mg DAILY PO Last administered on 07/11/16 09 :21; Admin Dose 2.5 MG; Start 07/10/16 at 09:00 Ascorbic Acid (Vitamin C) 1,000 mg BID PO Last administered on 07/12/16 08:45 ; Admin Dose 1,000 MG; Start 07/09/16 at 23:00 Clotrimazole (Lotrimin Cr) 1 applic BID TOP Last administered on 07/12/16 08: 46; Admin Dose 1 APPLIC; Start 07/09/16 at 23:00 Diazepam (Valium) 5 mg Q4H PRN PO MUSCLE SPASM Last administered on 07/11/16 19:49; Admin Dose 5 MG; Start 07/09/16 at 23:00 Diphenhydramine HCl (Benadryl) 50 mg Q6H PRN PO ALLERGIC REACTION; Start at 22:30 Docusate Sodium (Colace) 100 mg BID PO Last administered on 07/12/16 08:45; Admin Dose 100 MG; Start 07/09/16 at 23:00 Ferrous Sulfate (Ferrous Sulfate (Ec)) 325 mg TID PO Last administered on 08:45; Admin Dose 325 MG; Start 07/09/16 at 23:00 Bisacodyl (Dulcolax Supp) 10 mg DAILY PRN [place] CONSTIPATION; Start 07/10/16 at 04 :30 Senna (Senokot) 1 tab HS PO Last administered on 07/10/16 20:54; Admin Dose 1 TAB; Start 07/10/16 at 21:00 Magnesium Hydroxide (Milk Of Mag) 30 ml BID PRN PO CONSTIPATION; Start at 04:30 Lactulose (Enulose) 20 gm DAILY PRN PO CONSTIPATION; Start 07/10/16 at 04:30 Nitrofurantoin Macrocrystals (Macrobid) 100 mg BID PO Last administered on 07/12 08:45; Admin Dose 100 MG; Start 07/11/16 at 13:00; Stop 07/18/16 at 12:59 SVITLANA LUBIN July 12, 2016 09:04
[2016-07-12 19:55] VITALS: BP 122/63; RESP 18
[2016-07-12] MEDS: SENNA TAB PO SCH (20:28)
[2016-07-12] MEDS: HYDROCODONE/APAP (5/325) TAB PO PRN (20:31)
--- NOTE | 2016-07-12 21:43 | PN ---
Date/Time of Note Date/Time of Note DATE: 07/12/16 TIME: 21:40 Assessment/Plan VTE Prophylaxis VTE Prophylaxis Intervention: ambulation Lines/Catheters Urinary Cath still in place: No Assessment/Plan Problems: (1) Essential (primary) hypertension Status: Chronic Comment: Excellent BP control on current meds. (2) Aftercare following surgery of the musculoskeletal system Status: Acute Comment: Doing well POD#6. Pain well-controlled. Cont. PT in ARU. Subjective 24 Hr Interval Summary Constitutional: improved, no complaints Respiratory: no complaints Cardiovascular: no complaints Gastrointestinal: no complaints Genitourinary: no complaints Musculoskeletal: no complaints Neurologic: no complaints Exam/Review of Systems Vital Signs Vitals VS - Last 72 Hours, by Label Date Time Temp Pulse Resp B/P Pulse Ox O2 Delivery O2 Flow Rate FiO2 07/12/16 19:55 98.5 79 18 122/63 99 07/12/16 08:00 98.4 71 19 115/53 97 Room Air 07/11/16 20:00 98.5 72 18 138/96 95 07/11/16 07:30 98.3 74 18 125/65 95 07/10/16 20:00 98.9 82 18 118/55 98 07/10/16 07:36 98.8 78 18 111/52 96 07/09/16 22:34 99.2 86 19 121/62 96 07/09/16 22:00 100.1 92 19 87/48 98 Vital Signs Date Time Temp Pulse Resp B/P Pulse Ox O2 Delivery O2 Flow Rate FiO2 07/12/16 19:55 98.5 79 18 122/63 99 07/12/16 08:00 Room Air Intake and Output 07/11/16 07/11/16 07/12/16 15:00 23:00 07:00 Intake Total 820 ml 1550 ml Output Total 450 ml 320 ml 2350 ml Balance -450 ml 500 ml -800 ml Exam Constitutional: alert, obese, oriented Psych: nl mood/affect, no complaints Respiratory: clear to auscultation, normal air movement Cardiovascular: nl pulses, regular rate and rhythm, No edema, No murmurs/extra sounds, No rub Gastrointestinal: bowel sounds, nl liver, spleen, non-tender, soft, No mass, No rebound or guarding Musculoskeletal: nl extremities to inspection Extremities: normal pulses 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: WORKERS' COMPENSATION COMMISSIONER II-XII 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, nl mental status, nl speech, nl strength Results Result Diagram: 07/10/1660407/10/16604 Medications Medications Current Medications Valsartan (Diovan) 320 mg DAILY PO Last administered on 07/11/16 09:21; Admin Dose 320 MG; Start 07/10/16 at 09:00 Zolpidem Tartrate (Ambien) 5 mg HS PRN PO INSOMNIA Last administered on 23:05; Admin Dose 5 MG; Start 07/09/16 at 22:30 Hydrochlorothiazide (Hydrochlorothiazide) 25 mg DAILY PO ; Start 07/10/16 at 09: 00 Acetaminophen/ Hydrocodone Bitart ([place] (5/325)) 1 tab Q4H PRN PO PAIN; Start 07/09/16 at 22:30 Acetaminophen/ Hydrocodone Bitart ([place] (5/325)) 2 tab Q4H PRN PO PAIN Last administered on 07/12/16 20:31; Admin Dose 2 TAB; Start 07/09/16 at 22:30 Naloxone HCl (Narcan) 0.2 mg Q2M PRN IV DECREASED REPIRATORY RATE; Start at 22:30 Ondansetron HCl (Zofran Inj) 4 mg Q6H PRN IV NAUSEA AND/OR VOMITING; Start at 22:30 Prochlorperazine (Compazine) 10 mg Q4H PRN PO NAUSEA AND/OR VOMITING; Start at 22:30 Ranitidine HCl (Zantac) 150 mg BID PO Last administered on 07/12/16 20:28; Admin Dose 150 MG; Start 07/09/16 at 23:00 Trimethobenzamide HCl (Tigan) 200 mg Q4H PRN IM NAUSEA AND/OR VOMITING; Start 07/09/16 at 23:00 Acetaminophen (Tylenol Tab) 650 mg Q4H PRN PO PAIN AND OR ELEVATED TEMP; Start 07/09/16 at 22:30 Al Hydrox/Mg Hydrox/Simethicone (Mag-Al Plus) 15 ml Q4H PRN PO GASTROINTESTINAL UPSET; Start 07/09/16 at 22:30 Amlodipine Besylate (Norvasc) 2.5 mg DAILY PO Last administered on 07/11/16 09 :21; Admin Dose 2.5 MG; Start 07/10/16 at 09:00 Ascorbic Acid (Vitamin C) 1,000 mg BID PO Last administered on 07/12/16 20:28 ; Admin Dose 1,000 MG; Start 07/09/16 at 23:00 Clotrimazole (Lotrimin Cr) 1 applic BID TOP Last administered on 07/12/16 20: 28; Admin Dose 1 APPLIC; Start 07/09/16 at 23:00 Diazepam (Valium) 5 mg Q4H PRN PO MUSCLE SPASM Last administered on 07/11/16 19:49; Admin Dose 5 MG; Start 07/09/16 at 23:00 Diphenhydramine HCl (Benadryl) 50 mg Q6H PRN PO ALLERGIC REACTION; Start at 22:30 Docusate Sodium (Colace) 100 mg BID PO Last administered on 07/12/16 20:28; Admin Dose 100 MG; Start 07/09/16 at 23:00 Ferrous Sulfate (Ferrous Sulfate (Ec)) 325 mg TID PO Last administered on 20:28; Admin Dose 325 MG; Start 07/09/16 at 23:00 Bisacodyl (Dulcolax Supp) 10 mg DAILY PRN [place] CONSTIPATION; Start 07/10/16 at 04 :30 Senna (Senokot) 1 tab HS PO Last administered on 07/12/16 20:28; Admin Dose 1 TAB; Start 07/10/16 at 21:00 Magnesium Hydroxide (Milk Of Mag) 30 ml BID PRN PO CONSTIPATION; Start at 04:30 Lactulose (Enulose) 20 gm DAILY PRN PO CONSTIPATION; Start 07/10/16 at 04:30 Nitrofurantoin Macrocrystals (Macrobid) 100 mg BID PO Last administered on 07/12 20:28; Admin Dose 100 MG; Start 07/11/16 at 13:00; Stop 07/18/16 at 12:59 ASHLEY JEREZ MD July 12, 2016 21:43
[2016-07-12] MEDS: ZOLPIDEM 5 MG TAB PO PRN (22:50)
[2016-07-13 07:30] VITALS: BP 125/65; RESP 18
[2016-07-13] MEDS: FERROUS SULFATE (EC) 325 MG TAB PO SCH ×3 (09:27→20:53)
[2016-07-13] MEDS: RANITIDINE 150 MG TAB PO SCH ×2 (09:27→20:53)
[2016-07-13] MEDS: AMLODIPINE 2.5 MG TAB PO SCH (09:27)
[2016-07-13] MEDS: NITROFURANTOIN (SR) 100 MG CAP PO SCH ×2 (09:27→20:52)
--- NOTE | 2016-07-13 09:27 | PN ---
Date/Time of Note Date/Time of Note DATE: 07/13/16 TIME: 09:16 Assessment/Plan VTE Prophylaxis VTE Prophylaxis Intervention: SCD's Lines/Catheters Urinary Cath still in place: No Assessment/Plan Assessment/Plan 1. Multilevel lumbar spinal canal stenosis with lumbar radiculopathy, status post decompressive laminectomy, medial facetectomy and foraminotomy, with impaired mobility/gait/ADLs. Continue PT/OT. Ambulating 60ft with FWW with mod assist. 2. Acute postoperative pain syndrome. Pain controlled, continue pain regimen including prn norco. 3. Hypertension. BP controlled. Continue to monitor. Continue medical management. 4. Morbid obesity. 5. UTI. On antibiotics. 6. Anemia. On iron supplementation. Continue to monitor hemoglobin/hematocrit. 7. Depression. Patient reports for the past 5 years, previously not on any treatment. Psychology has been consulted. Subjective 24 Hr Interval Summary Free Text/Dictation Rehab progress note Subjective: Reports sleeping well overnight. 4/10 pain in low back currently. Denies constipation. ROS: Denies headache, no dizziness, no new paresthesias or new weakness, no chills. Exam/Review of Systems Vital Signs Vitals Vital Signs Date Time Temp Pulse Resp B/P Pulse Ox O2 Delivery O2 Flow Rate FiO2 07/12/16 19:55 98.5 79 18 122/63 99 07/12/16 08:00 Room Air Intake and Output 07/12/16 07/12/16 07/13/16 15:00 23:00 07:00 Intake Total 1200 ml 360 ml Output Total 1550 ml 1250 ml Balance -350 ml -890 ml Exam General: Awake, alert, no acute distress CV: Regular rate and rhythm, s1s2 audible Lungs: Clear to auscultation, no wheezing Abdomen soft, nontender, +bowel sounds Extremities without cyanosis, knee braces in place Neuro: Antigravity strength BLE. No new sensory changes. Results Result Diagram: 07/10/1660407/10/16604 Medications Medications Current Medications Valsartan (Diovan) 320 mg DAILY PO Last administered on 07/11/16 09:21; Admin Dose 320 MG; Start 07/10/16 at 09:00 Zolpidem Tartrate (Ambien) 5 mg HS PRN PO INSOMNIA Last administered on 22:50; Admin Dose 5 MG; Start 07/09/16 at 22:30 Hydrochlorothiazide (Hydrochlorothiazide) 25 mg DAILY PO ; Start 07/10/16 at 09: 00 Acetaminophen/ Hydrocodone Bitart ([place] (5/325)) 1 tab Q4H PRN PO PAIN; Start 07/09/16 at 22:30 Acetaminophen/ Hydrocodone Bitart ([place] (5/325)) 2 tab Q4H PRN PO PAIN Last administered on 07/12/16 20:31; Admin Dose 2 TAB; Start 07/09/16 at 22:30 Naloxone HCl (Narcan) 0.2 mg Q2M PRN IV DECREASED REPIRATORY RATE; Start at 22:30 Ondansetron HCl (Zofran Inj) 4 mg Q6H PRN IV NAUSEA AND/OR VOMITING; Start at 22:30 Prochlorperazine (Compazine) 10 mg Q4H PRN PO NAUSEA AND/OR VOMITING; Start at 22:30 Ranitidine HCl (Zantac) 150 mg BID PO Last administered on 07/12/16 20:28; Admin Dose 150 MG; Start 07/09/16 at 23:00 Trimethobenzamide HCl (Tigan) 200 mg Q4H PRN IM NAUSEA AND/OR VOMITING; Start 07/09/16 at 23:00 Acetaminophen (Tylenol Tab) 650 mg Q4H PRN PO PAIN AND OR ELEVATED TEMP; Start 07/09/16 at 22:30 Al Hydrox/Mg Hydrox/Simethicone (Mag-Al Plus) 15 ml Q4H PRN PO GASTROINTESTINAL UPSET; Start 07/09/16 at 22:30 Amlodipine Besylate (Norvasc) 2.5 mg DAILY PO Last administered on 07/11/16 09 :21; Admin Dose 2.5 MG; Start 07/10/16 at 09:00 Ascorbic Acid (Vitamin C) 1,000 mg BID PO Last administered on 07/12/16 20:28 ; Admin Dose 1,000 MG; Start 07/09/16 at 23:00 Clotrimazole (Lotrimin Cr) 1 applic BID TOP Last administered on 07/12/16 20: 28; Admin Dose 1 APPLIC; Start 07/09/16 at 23:00 Diazepam (Valium) 5 mg Q4H PRN PO MUSCLE SPASM Last administered on 07/11/16 19:49; Admin Dose 5 MG; Start 07/09/16 at 23:00 Diphenhydramine HCl (Benadryl) 50 mg Q6H PRN PO ALLERGIC REACTION; Start at 22:30 Docusate Sodium (Colace) 100 mg BID PO Last administered on 07/12/16 20:28; Admin Dose 100 MG; Start 07/09/16 at 23:00 Ferrous Sulfate (Ferrous Sulfate (Ec)) 325 mg TID PO Last administered on 20:28; Admin Dose 325 MG; Start 07/09/16 at 23:00 Bisacodyl (Dulcolax Supp) 10 mg DAILY PRN [place] CONSTIPATION; Start 07/10/16 at 04 :30 Senna (Senokot) 1 tab HS PO Last administered on 07/12/16 20:28; Admin Dose 1 TAB; Start 07/10/16 at 21:00 Magnesium Hydroxide (Milk Of Mag) 30 ml BID PRN PO CONSTIPATION; Start at 04:30 Lactulose (Enulose) 20 gm DAILY PRN PO CONSTIPATION; Start 07/10/16 at 04:30 Nitrofurantoin Macrocrystals (Macrobid) 100 mg BID PO Last administered on 07/12 20:28; Admin Dose 100 MG; Start 07/11/16 at 13:00; Stop 07/18/16 at 12:59 SVITLANA LUBIN July 13, 2016 09:26
[2016-07-13] MEDS: DOCUSATE SODIUM 100 MG CAP PO SCH ×2 (09:28→20:53)
[2016-07-13] MEDS: HYDROCHLOROTHIAZIDE 25 MG TAB PO SCH (09:28)
[2016-07-13] MEDS: VALSARTAN 160 MG TAB PO SCH (09:28)
[2016-07-13] MEDS: ASCORBIC ACID 500 MG TAB PO SCH ×2 (09:28→20:53)
[2016-07-13] MEDS: HYDROCODONE/APAP (5/325) TAB PO PRN ×2 (09:30→20:56)
[2016-07-13] MEDS: CLOTRIMAZOLE 1% 30 GM CR TOP SCH ×2 (09:31→21:00)
[2016-07-13] MEDS: DIAZEPAM 5 MG TAB PO PRN (12:49)
--- NOTE | 2016-07-13 13:17 | PN ---
Date/Time of Note Date/Time of Note DATE: 07/13/16 TIME: 13:14 Assessment/Plan VTE Prophylaxis VTE Prophylaxis Intervention: ambulation Lines/Catheters Urinary Cath still in place: No Assessment/Plan Problems: (1) Urinary tract infection Status: Acute Comment: Now on macrobid x 1 week (2) Essential (primary) hypertension Status: Chronic Comment: Good BP control. Cont. current regimen (3) Aftercare following surgery of the musculoskeletal system Status: Acute Comment: Healing well from lumbar lami. Cont. current PT in rehab. Subjective 24 Hr Interval Summary Constitutional: improved, no complaints Respiratory: no complaints Cardiovascular: no complaints Gastrointestinal: no complaints Genitourinary: no complaints Musculoskeletal: no complaints, No back pain Neurologic: no complaints Exam/Review of Systems Vital Signs Vitals VS - Last 72 Hours, by Label Date Time Temp Pulse Resp B/P Pulse Ox O2 Delivery O2 Flow Rate FiO2 07/13/16 07:30 98.8 66 18 125/65 98 07/12/16 19:55 98.5 79 18 122/63 99 07/12/16 08:00 98.4 71 19 115/53 97 Room Air 07/11/16 20:00 98.5 72 18 138/96 95 07/11/16 07:30 98.3 74 18 125/65 95 07/10/16 20:00 98.9 82 18 118/55 98 Vital Signs Date Time Temp Pulse Resp B/P Pulse Ox O2 Delivery O2 Flow Rate FiO2 07/13/16 07:30 98.8 66 18 125/65 98 07/12/16 08:00 Room Air Intake and Output 07/12/16 07/12/16 07/13/16 15:00 23:00 07:00 Intake Total 1200 ml 360 ml Output Total 1550 ml 1250 ml Balance -350 ml -890 ml Exam Constitutional: alert, obese, oriented Psych: nl mood/affect, no complaints Respiratory: clear to auscultation, normal air movement Cardiovascular: nl pulses, regular rate and rhythm, No edema, No murmurs/extra sounds, No rub Gastrointestinal: bowel sounds, nl liver, spleen, non-tender, soft, No mass, No rebound or guarding Musculoskeletal: nl extremities to inspection Extremities: normal pulses, No clubbing, No cyanosis, No edema 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: BODY TEAM MEMBER II-XII intact, nl mental status, nl speech, nl strength Results Result Diagram: 07/10/1660407/10/16604 Medications Medications Current Medications Valsartan (Diovan) 320 mg DAILY PO Last administered on 07/13/16 09:28; Admin Dose 320 MG; Start 07/10/16 at 09:00 Zolpidem Tartrate (Ambien) 5 mg HS PRN PO INSOMNIA Last administered on 22:50; Admin Dose 5 MG; Start 07/09/16 at 22:30 Hydrochlorothiazide (Hydrochlorothiazide) 25 mg DAILY PO Last administered on 09:28; Admin Dose 25 MG; Start 07/10/16 at 09:00 Acetaminophen/ Hydrocodone Bitart ([place] (5/325)) 1 tab Q4H PRN PO PAIN Last administered on 07/13/16 09:30; Admin Dose 1 TAB; Start 07/09/16 at 22:30 Acetaminophen/ Hydrocodone Bitart ([place] (5/325)) 2 tab Q4H PRN PO PAIN Last administered on 07/12/16 20:31; Admin Dose 2 TAB; Start 07/09/16 at 22:30 Naloxone HCl (Narcan) 0.2 mg Q2M PRN IV DECREASED REPIRATORY RATE; Start at 22:30 Ondansetron HCl (Zofran Inj) 4 mg Q6H PRN IV NAUSEA AND/OR VOMITING; Start at 22:30 Prochlorperazine (Compazine) 10 mg Q4H PRN PO NAUSEA AND/OR VOMITING; Start at 22:30 Ranitidine HCl (Zantac) 150 mg BID PO Last administered on 07/13/16 09:27; Admin Dose 150 MG; Start 07/09/16 at 23:00 Trimethobenzamide HCl (Tigan) 200 mg Q4H PRN IM NAUSEA AND/OR VOMITING; Start 07/09/16 at 23:00 Acetaminophen (Tylenol Tab) 650 mg Q4H PRN PO PAIN AND OR ELEVATED TEMP; Start 07/09/16 at 22:30 Al Hydrox/Mg Hydrox/Simethicone (Mag-Al Plus) 15 ml Q4H PRN PO GASTROINTESTINAL UPSET; Start 07/09/16 at 22:30 Amlodipine Besylate (Norvasc) 2.5 mg DAILY PO Last administered on 07/13/16 09 :27; Admin Dose 2.5 MG; Start 07/10/16 at 09:00 Ascorbic Acid (Vitamin C) 1,000 mg BID PO Last administered on 07/13/16 09:28 ; Admin Dose 1,000 MG; Start 07/09/16 at 23:00 Clotrimazole (Lotrimin Cr) 1 applic BID TOP Last administered on 07/13/16 09: 31; Admin Dose 1 APPLIC; Start 07/09/16 at 23:00 Diazepam (Valium) 5 mg Q4H PRN PO MUSCLE SPASM Last administered on 07/13/16 12:49; Admin Dose 5 MG; Start 07/09/16 at 23:00 Diphenhydramine HCl (Benadryl) 50 mg Q6H PRN PO ALLERGIC REACTION; Start at 22:30 Docusate Sodium (Colace) 100 mg BID PO Last administered on 07/13/16 09:28; Admin Dose 100 MG; Start 07/09/16 at 23:00 Ferrous Sulfate (Ferrous Sulfate (Ec)) 325 mg TID PO Last administered on 12:41; Admin Dose 325 MG; Start 07/09/16 at 23:00 Bisacodyl (Dulcolax Supp) 10 mg DAILY PRN [place] CONSTIPATION; Start 07/10/16 at 04 :30 Senna (Senokot) 1 tab HS PO Last administered on 07/12/16 20:28; Admin Dose 1 TAB; Start 07/10/16 at 21:00 Magnesium Hydroxide (Milk Of Mag) 30 ml BID PRN PO CONSTIPATION; Start at 04:30 Lactulose (Enulose) 20 gm DAILY PRN PO CONSTIPATION; Start 07/10/16 at 04:30 Nitrofurantoin Macrocrystals (Macrobid) 100 mg BID PO Last administered on 07/13 09:27; Admin Dose 100 MG; Start 07/11/16 at 13:00; Stop 07/18/16 at 12:59 ASHLEY JEREZ MD July 13, 2016 13:17
[2016-07-13] MEDS: SENNA TAB PO SCH (20:59)
[2016-07-14] MEDS: ZOLPIDEM 5 MG TAB PO PRN ×2 (00:15→22:56)
[2016-07-14 07:26] VITALS: BP 113/58; PULSE 73; RESP 20
[2016-07-14] MEDS: RANITIDINE 150 MG TAB PO SCH ×2 (08:29→20:17)
[2016-07-14] MEDS: DOCUSATE SODIUM 100 MG CAP PO SCH ×2 (08:29→20:18)
[2016-07-14] MEDS: FERROUS SULFATE (EC) 325 MG TAB PO SCH ×3 (08:29→20:17)
[2016-07-14] MEDS: NITROFURANTOIN (SR) 100 MG CAP PO SCH ×2 (08:29→20:17)
[2016-07-14] MEDS: ASCORBIC ACID 500 MG TAB PO SCH ×2 (08:29→20:17)
[2016-07-14] MEDS: CLOTRIMAZOLE 1% 30 GM CR TOP SCH ×2 (08:30→20:18)
[2016-07-14] MEDS: HYDROCHLOROTHIAZIDE 25 MG TAB PO SCH (09:00)
[2016-07-14] MEDS: AMLODIPINE 2.5 MG TAB PO SCH (09:00)
[2016-07-14] MEDS: VALSARTAN 160 MG TAB PO SCH (09:00)
[2016-07-14] MEDS: HYDROCODONE/APAP (5/325) TAB PO PRN ×2 (10:13→20:18)
--- NOTE | 2016-07-14 12:25 | CONS ---
Date/Time of Note Date/Time of Note DATE: 07/14/16 TIME: 12:13 Consult Date/Type/Reason Admit Date/Time July 09, 2016 at 20:57 Initial Consult Date Subjective Feeling much better Objective Vital Signs Date Time Temp Pulse Resp B/P Pulse Ox O2 Delivery O2 Flow Rate FiO2 07/14/16 07:26 98.6 73 20 113/58 97 Room Air Intake and Output 07/13/16 07/13/16 07/14/16 15:00 23:00 07:00 Intake Total 1700 ml 1050 ml Output Total 1460 ml Balance 240 ml 1050 ml INTERDISCIPLINARY TEAM CONFERENCE BOWEL- Cont BLADDER-Cont SKIN- intact OT- DRESSING-min/mod BATHING-min/mod TOILETING-min/mod PT- BED MOBILITY-min TRANSFERS-min AMBULATION-min 125 feet A/P- Interdisciplinary team conference held today. Please see interdisciplinary sheet. Working toward d.c. on 07/21 with post discharge follow up of physical therapy, occupational therapy. Results/Medications Result Diagram: 07/10/1660407/10/16 06 Medications Current Medications Valsartan (Diovan) 320 mg DAILY PO Last administered on 07/13/16 09:28; Admin Dose 320 MG; Start 07/10/16 at 09:00 Zolpidem Tartrate (Ambien) 5 mg HS PRN PO INSOMNIA Last administered on 00:15; Admin Dose 5 MG; Start 07/09/16 at 22:30 Hydrochlorothiazide (Hydrochlorothiazide) 25 mg DAILY PO Last administered on 09:28; Admin Dose 25 MG; Start 07/10/16 at 09:00 Acetaminophen/ Hydrocodone Bitart ([place] (5/325)) 1 tab Q4H PRN PO PAIN Last administered on 07/14/16 10:13; Admin Dose 1 TAB; Start 07/09/16 at 22:30 Acetaminophen/ Hydrocodone Bitart ([place] (5/325)) 2 tab Q4H PRN PO PAIN Last administered on 07/13/16 20:56; Admin Dose 2 TAB; Start 07/09/16 at 22:30 Naloxone HCl (Narcan) 0.2 mg Q2M PRN IV DECREASED REPIRATORY RATE; Start at 22:30 Ondansetron HCl (Zofran Inj) 4 mg Q6H PRN IV NAUSEA AND/OR VOMITING; Start at 22:30 Prochlorperazine (Compazine) 10 mg Q4H PRN PO NAUSEA AND/OR VOMITING; Start at 22:30 Ranitidine HCl (Zantac) 150 mg BID PO Last administered on 07/14/16 08:29; Admin Dose 150 MG; Start 07/09/16 at 23:00 Trimethobenzamide HCl (Tigan) 200 mg Q4H PRN IM NAUSEA AND/OR VOMITING; Start 07/09/16 at 23:00 Acetaminophen (Tylenol Tab) 650 mg Q4H PRN PO PAIN AND OR ELEVATED TEMP; Start 07/09/16 at 22:30 Al Hydrox/Mg Hydrox/Simethicone (Mag-Al Plus) 15 ml Q4H PRN PO GASTROINTESTINAL UPSET; Start 07/09/16 at 22:30 Amlodipine Besylate (Norvasc) 2.5 mg DAILY PO Last administered on 07/13/16 09 :27; Admin Dose 2.5 MG; Start 07/10/16 at 09:00 Ascorbic Acid (Vitamin C) 1,000 mg BID PO Last administered on 07/14/16 08:29 ; Admin Dose 1,000 MG; Start 07/09/16 at 23:00 Clotrimazole (Lotrimin Cr) 1 applic BID TOP Last administered on 07/14/16 08: 30; Admin Dose 1 APPLIC; Start 07/09/16 at 23:00 Diazepam (Valium) 5 mg Q4H PRN PO MUSCLE SPASM Last administered on 07/13/16 12:49; Admin Dose 5 MG; Start 07/09/16 at 23:00 Diphenhydramine HCl (Benadryl) 50 mg Q6H PRN PO ALLERGIC REACTION; Start at 22:30 Docusate Sodium (Colace) 100 mg BID PO Last administered on 07/14/16 08:29; Admin Dose 100 MG; Start 07/09/16 at 23:00 Ferrous Sulfate (Ferrous Sulfate (Ec)) 325 mg TID PO Last administered on 08:29; Admin Dose 325 MG; Start 07/09/16 at 23:00 Bisacodyl (Dulcolax Supp) 10 mg DAILY PRN [place] CONSTIPATION; Start 07/10/16 at 04 :30 Senna (Senokot) 1 tab HS PO Last administered on 07/12/16 20:28; Admin Dose 1 TAB; Start 07/10/16 at 21:00 Magnesium Hydroxide (Milk Of Mag) 30 ml BID PRN PO CONSTIPATION; Start at 04:30 Lactulose (Enulose) 20 gm DAILY PRN PO CONSTIPATION; Start 07/10/16 at 04:30 Nitrofurantoin Macrocrystals (Macrobid) 100 mg BID PO Last administered on 07/14 08:29; Admin Dose 100 MG; Start 07/11/16 at 13:00; Stop 07/18/16 at 12:59 PITER VELÁSQUEZ MD July 14, 2016 12:24
[2016-07-14 19:03] VITALS: BP 124/62; RESP 18
--- NOTE | 2016-07-14 19:12 | PN ---
Date/Time of Note Date/Time of Note DATE: 07/14/16 TIME: 19:08 Assessment/Plan VTE Prophylaxis VTE Prophylaxis Intervention: ambulation Lines/Catheters Urinary Cath still in place: No Assessment/Plan Problems: (1) Essential (primary) hypertension Status: Chronic Comment: good bp control without medications (2) Urinary tract infection Status: Acute Comment: Will repeat urine culture. (3) Morbid (severe) obesity due to excess calories Status: Chronic Comment: no new issues (4) Aftercare following surgery Status: Acute Comment: PT per ARU Subjective 24 Hr Interval Summary Free Text/Dictation Patient without complaints today. Anxious for discharge on Wednesday. Exam/Review of Systems Vital Signs Vitals Vital Signs Date Time Temp Pulse Resp B/P Pulse Ox O2 Delivery O2 Flow Rate FiO2 07/14/16 07:26 98.6 73 20 113/58 97 Room Air Intake and Output 07/13/16 07/13/16 07/14/16 15:00 23:00 07:00 Intake Total 1700 ml 1050 ml Output Total 1460 ml Balance 240 ml 1050 ml Exam Constitutional: alert, obese, oriented Neck: supple Respiratory: clear to auscultation Cardiovascular: regular rate and rhythm Gastrointestinal: soft Musculoskeletal: nl extremities to inspection Extremities: normal pulses Results Result Diagram: 07/10/1660407/10/16604 Medications Medications Current Medications Valsartan (Diovan) 320 mg DAILY PO Last administered on 07/13/16 09:28; Admin Dose 320 MG; Start 07/10/16 at 09:00 Zolpidem Tartrate (Ambien) 5 mg HS PRN PO INSOMNIA Last administered on 00:15; Admin Dose 5 MG; Start 07/09/16 at 22:30 Hydrochlorothiazide (Hydrochlorothiazide) 25 mg DAILY PO Last administered on 09:28; Admin Dose 25 MG; Start 07/10/16 at 09:00 Acetaminophen/ Hydrocodone Bitart ([place] (5/325)) 1 tab Q4H PRN PO PAIN Last administered on 07/14/16 10:13; Admin Dose 1 TAB; Start 07/09/16 at 22:30 Acetaminophen/ Hydrocodone Bitart ([place] (5/325)) 2 tab Q4H PRN PO PAIN Last administered on 07/13/16 20:56; Admin Dose 2 TAB; Start 07/09/16 at 22:30 Naloxone HCl (Narcan) 0.2 mg Q2M PRN IV DECREASED REPIRATORY RATE; Start at 22:30 Ondansetron HCl (Zofran Inj) 4 mg Q6H PRN IV NAUSEA AND/OR VOMITING; Start at 22:30 Prochlorperazine (Compazine) 10 mg Q4H PRN PO NAUSEA AND/OR VOMITING; Start at 22:30 Ranitidine HCl (Zantac) 150 mg BID PO Last administered on 07/14/16 08:29; Admin Dose 150 MG; Start 07/09/16 at 23:00 Trimethobenzamide HCl (Tigan) 200 mg Q4H PRN IM NAUSEA AND/OR VOMITING; Start 07/09/16 at 23:00 Acetaminophen (Tylenol Tab) 650 mg Q4H PRN PO PAIN AND OR ELEVATED TEMP; Start 07/09/16 at 22:30 Al Hydrox/Mg Hydrox/Simethicone (Mag-Al Plus) 15 ml Q4H PRN PO GASTROINTESTINAL UPSET; Start 07/09/16 at 22:30 Amlodipine Besylate (Norvasc) 2.5 mg DAILY PO Last administered on 07/13/16 09 :27; Admin Dose 2.5 MG; Start 07/10/16 at 09:00 Ascorbic Acid (Vitamin C) 1,000 mg BID PO Last administered on 07/14/16 08:29 ; Admin Dose 1,000 MG; Start 07/09/16 at 23:00 Clotrimazole (Lotrimin Cr) 1 applic BID TOP Last administered on 07/14/16 08: 30; Admin Dose 1 APPLIC; Start 07/09/16 at 23:00 Diazepam (Valium) 5 mg Q4H PRN PO MUSCLE SPASM Last administered on 07/13/16 12:49; Admin Dose 5 MG; Start 07/09/16 at 23:00 Diphenhydramine HCl (Benadryl) 50 mg Q6H PRN PO ALLERGIC REACTION; Start at 22:30 Docusate Sodium (Colace) 100 mg BID PO Last administered on 07/14/16 08:29; Admin Dose 100 MG; Start 07/09/16 at 23:00 Ferrous Sulfate (Ferrous Sulfate (Ec)) 325 mg TID PO Last administered on 14:01; Admin Dose 325 MG; Start 07/09/16 at 23:00 Bisacodyl (Dulcolax Supp) 10 mg DAILY PRN [place] CONSTIPATION; Start 07/10/16 at 04 :30 Senna (Senokot) 1 tab HS PO Last administered on 07/12/16 20:28; Admin Dose 1 TAB; Start 07/10/16 at 21:00 Magnesium Hydroxide (Milk Of Mag) 30 ml BID PRN PO CONSTIPATION; Start at 04:30 Lactulose (Enulose) 20 gm DAILY PRN PO CONSTIPATION; Start 07/10/16 at 04:30 Nitrofurantoin Macrocrystals (Macrobid) 100 mg BID PO Last administered on 07/14 08:29; Admin Dose 100 MG; Start 07/11/16 at 13:00; Stop 07/18/16 at 12:59 TIERRA HOWELL MD July 14, 2016 19:12
[2016-07-14] MEDS: SENNA TAB PO SCH (20:18)
[2016-07-14] MEDS: DIAZEPAM 5 MG TAB PO PRN (22:57)
[2016-07-15 07:38] VITALS: BP 114/56; RESP 18
[2016-07-15] MEDS: ASCORBIC ACID 500 MG TAB PO SCH ×2 (08:52→20:22)
[2016-07-15] MEDS: RANITIDINE 150 MG TAB PO SCH ×2 (08:52→20:22)
[2016-07-15] MEDS: NITROFURANTOIN (SR) 100 MG CAP PO SCH ×2 (08:52→20:22)
[2016-07-15] MEDS: DOCUSATE SODIUM 100 MG CAP PO SCH ×2 (08:52→20:22)
[2016-07-15] MEDS: FERROUS SULFATE (EC) 325 MG TAB PO SCH ×3 (08:52→20:22)
[2016-07-15] MEDS: HYDROCODONE/APAP (5/325) TAB PO PRN ×2 (08:53→20:23)
[2016-07-15] MEDS: VALSARTAN 160 MG TAB PO SCH (08:55)
[2016-07-15] MEDS: AMLODIPINE 2.5 MG TAB PO SCH (08:55)
[2016-07-15] MEDS: HYDROCHLOROTHIAZIDE 25 MG TAB PO SCH (08:55)
[2016-07-15] MEDS: CLOTRIMAZOLE 1% 30 GM CR TOP SCH ×2 (08:58→20:22)
--- NOTE | 2016-07-15 12:24 | CONS ---
Date/Time of Note Date/Time of Note DATE: 07/15/16 TIME: 12:23 Consult Date/Type/Reason Admit Date/Time July 09, 2016 at 20:57 Subjective Comfortable Objective pulm-cta abd-soft min ambulation Vital Signs Date Time Temp Pulse Resp B/P Pulse Ox O2 Delivery O2 Flow Rate FiO2 07/15/16 07:38 98.5 65 18 114/56 97 07/14/16 07:26 Room Air Intake and Output 07/14/16 07/14/16 07/15/16 15:00 23:00 07:00 Intake Total 1200 ml 600 ml 550 ml Output Total 400 ml 350 ml Balance 800 ml 250 ml 550 ml Results/Medications Medications Current Medications Valsartan (Diovan) 320 mg DAILY PO Last administered on 07/13/16 09:28; Admin Dose 320 MG; Start 07/10/16 at 09:00 Zolpidem Tartrate (Ambien) 5 mg HS PRN PO INSOMNIA Last administered on 22:56; Admin Dose 5 MG; Start 07/09/16 at 22:30 Hydrochlorothiazide (Hydrochlorothiazide) 25 mg DAILY PO Last administered on 09:28; Admin Dose 25 MG; Start 07/10/16 at 09:00 Acetaminophen/ Hydrocodone Bitart ([place] (5/325)) 1 tab Q4H PRN PO PAIN Last administered on 07/14/16 10:13; Admin Dose 1 TAB; Start 07/09/16 at 22:30 Acetaminophen/ Hydrocodone Bitart ([place] (5/325)) 2 tab Q4H PRN PO PAIN Last administered on 07/15/16 08:53; Admin Dose 2 TAB; Start 07/09/16 at 22:30 Naloxone HCl (Narcan) 0.2 mg Q2M PRN IV DECREASED REPIRATORY RATE; Start at 22:30 Ondansetron HCl (Zofran Inj) 4 mg Q6H PRN IV NAUSEA AND/OR VOMITING; Start at 22:30 Prochlorperazine (Compazine) 10 mg Q4H PRN PO NAUSEA AND/OR VOMITING; Start at 22:30 Ranitidine HCl (Zantac) 150 mg BID PO Last administered on 07/15/16 08:52; Admin Dose 150 MG; Start 07/09/16 at 23:00 Trimethobenzamide HCl (Tigan) 200 mg Q4H PRN IM NAUSEA AND/OR VOMITING; Start 07/09/16 at 23:00 Acetaminophen (Tylenol Tab) 650 mg Q4H PRN PO PAIN AND OR ELEVATED TEMP; Start 07/09/16 at 22:30 Al Hydrox/Mg Hydrox/Simethicone (Mag-Al Plus) 15 ml Q4H PRN PO GASTROINTESTINAL UPSET; Start 07/09/16 at 22:30 Amlodipine Besylate (Norvasc) 2.5 mg DAILY PO Last administered on 07/13/16 09 :27; Admin Dose 2.5 MG; Start 07/10/16 at 09:00 Ascorbic Acid (Vitamin C) 1,000 mg BID PO Last administered on 07/15/16 08:52 ; Admin Dose 1,000 MG; Start 07/09/16 at 23:00 Clotrimazole (Lotrimin Cr) 1 applic BID TOP Last administered on 07/15/16 08: 58; Admin Dose 1 APPLIC; Start 07/09/16 at 23:00 Diazepam (Valium) 5 mg Q4H PRN PO MUSCLE SPASM Last administered on 07/14/16 22:57; Admin Dose 5 MG; Start 07/09/16 at 23:00 Diphenhydramine HCl (Benadryl) 50 mg Q6H PRN PO ALLERGIC REACTION; Start at 22:30 Docusate Sodium (Colace) 100 mg BID PO Last administered on 07/15/16 08:52; Admin Dose 100 MG; Start 07/09/16 at 23:00 Ferrous Sulfate (Ferrous Sulfate (Ec)) 325 mg TID PO Last administered on 08:52; Admin Dose 325 MG; Start 07/09/16 at 23:00 Bisacodyl (Dulcolax Supp) 10 mg DAILY PRN [place] CONSTIPATION; Start 07/10/16 at 04 :30 Senna (Senokot) 1 tab HS PO Last administered on 07/12/16 20:28; Admin Dose 1 TAB; Start 07/10/16 at 21:00 Magnesium Hydroxide (Milk Of Mag) 30 ml BID PRN PO CONSTIPATION; Start 5/26/ 17 at 04:30 Lactulose (Enulose) 20 gm DAILY PRN PO CONSTIPATION; Start 07/10/16 at 04:30 Nitrofurantoin Macrocrystals (Macrobid) 100 mg BID PO Last administered on 07/15t 08:52; Admin Dose 100 MG; Start 07/11/16 at 13:00; Stop 07/18/16 at 12:59 Assessment/Plan Additional Assessment/Plan Rehab- Multilevel lumbar spinal stenosis with radiculopathy status post decompressive laminectomy. Continue rehab program Hypertension. Morbid obesity. Acute pain syndrome. PITER VELÁSQUEZ MD July 15, 2016 12:24
--- NOTE | 2016-07-15 19:43 | PN ---
Date/Time of Note Date/Time of Note DATE: 07/15/16 TIME: 19:40 Assessment/Plan VTE Prophylaxis VTE Prophylaxis Intervention: ambulation Lines/Catheters Urinary Cath still in place: No Assessment/Plan Problems: (1) Aftercare following surgery Status: Acute (2) Morbid (severe) obesity due to excess calories Status: Chronic (3) Essential (primary) hypertension Status: Chronic (4) Urinary tract infection Status: Acute Comment: No urine culture sent. On macrobid. Will request repeat urine culture. Assessment/Plan Continue management per ARU Subjective 24 Hr Interval Summary Free Text/Dictation No new issues. Exam/Review of Systems Vital Signs Vitals Vital Signs Date Time Temp Pulse Resp B/P Pulse Ox O2 Delivery O2 Flow Rate FiO2 07/15/16 07:38 98.5 65 18 114/56 97 07/14/16 07:26 Room Air Intake and Output 07/14/16 07/14/16 07/15/16 15:00 23:00 07:00 Intake Total 1200 ml 600 ml 550 ml Output Total 400 ml 350 ml Balance 800 ml 250 ml 550 ml Exam Resting comfortably Medications Medications Current Medications Valsartan (Diovan) 320 mg DAILY PO Last administered on 07/13/16 09:28; Admin Dose 320 MG; Start 07/10/16 at 09:00 Zolpidem Tartrate (Ambien) 5 mg HS PRN PO INSOMNIA Last administered on 22:56; Admin Dose 5 MG; Start 07/09/16 at 22:30 Hydrochlorothiazide (Hydrochlorothiazide) 25 mg DAILY PO Last administered on 09:28; Admin Dose 25 MG; Start 07/10/16 at 09:00 Acetaminophen/ Hydrocodone Bitart ([place] (5/325)) 1 tab Q4H PRN PO PAIN Last administered on 07/14/16 10:13; Admin Dose 1 TAB; Start 07/09/16 at 22:30 Acetaminophen/ Hydrocodone Bitart ([place] (5/325)) 2 tab Q4H PRN PO PAIN Last administered on 07/15/16 08:53; Admin Dose 2 TAB; Start 07/09/16 at 22:30 Naloxone HCl (Narcan) 0.2 mg Q2M PRN IV DECREASED REPIRATORY RATE; Start at 22:30 Ondansetron HCl (Zofran Inj) 4 mg Q6H PRN IV NAUSEA AND/OR VOMITING; Start at 22:30 Prochlorperazine (Compazine) 10 mg Q4H PRN PO NAUSEA AND/OR VOMITING; Start at 22:30 Ranitidine HCl (Zantac) 150 mg BID PO Last administered on 07/15/16 08:52; Admin Dose 150 MG; Start 07/09/16 at 23:00 Trimethobenzamide HCl (Tigan) 200 mg Q4H PRN IM NAUSEA AND/OR VOMITING; Start 07/09/16 at 23:00 Acetaminophen (Tylenol Tab) 650 mg Q4H PRN PO PAIN AND OR ELEVATED TEMP; Start 07/09/16 at 22:30 Al Hydrox/Mg Hydrox/Simethicone (Mag-Al Plus) 15 ml Q4H PRN PO GASTROINTESTINAL UPSET; Start 07/09/16 at 22:30 Amlodipine Besylate (Norvasc) 2.5 mg DAILY PO Last administered on 07/13/16 09 :27; Admin Dose 2.5 MG; Start 07/10/16 at 09:00 Ascorbic Acid (Vitamin C) 1,000 mg BID PO Last administered on 07/15/16 08:52 ; Admin Dose 1,000 MG; Start 07/09/16 at 23:00 Clotrimazole (Lotrimin Cr) 1 applic BID TOP Last administered on 07/15/16 08: 58; Admin Dose 1 APPLIC; Start 07/09/16 at 23:00 Diazepam (Valium) 5 mg Q4H PRN PO MUSCLE SPASM Last administered on 07/14/16 22:57; Admin Dose 5 MG; Start 07/09/16 at 23:00 Diphenhydramine HCl (Benadryl) 50 mg Q6H PRN PO ALLERGIC REACTION; Start at 22:30 Docusate Sodium (Colace) 100 mg BID PO Last administered on 07/15/16 08:52; Admin Dose 100 MG; Start 07/09/16 at 23:00 Ferrous Sulfate (Ferrous Sulfate (Ec)) 325 mg TID PO Last administered on 12:34; Admin Dose 325 MG; Start 07/09/16 at 23:00 Bisacodyl (Dulcolax Supp) 10 mg DAILY PRN [place] CONSTIPATION; Start 07/10/16 at 04 :30 Senna (Senokot) 1 tab HS PO Last administered on 07/12/16 20:28; Admin Dose 1 TAB; Start 07/10/16 at 21:00 Magnesium Hydroxide (Milk Of Mag) 30 ml BID PRN PO CONSTIPATION; Start at 04:30 Lactulose (Enulose) 20 gm DAILY PRN PO CONSTIPATION; Start 07/10/16 at 04:30 Nitrofurantoin Macrocrystals (Macrobid) 100 mg BID PO Last administered on 07/15 08:52; Admin Dose 100 MG; Start 07/11/16 at 13:00; Stop 07/18/16 at 12:59 TIERRA HOWELL MD July 15, 2016 19:43
[2016-07-15 20:00] VITALS: BP 128/65; RESP 18
[2016-07-15] MEDS: SENNA TAB PO SCH (20:22)
[2016-07-15] MEDS: ZOLPIDEM 5 MG TAB PO PRN (22:52)
[2016-07-15] MEDS: DIAZEPAM 5 MG TAB PO PRN (22:52)
--- NOTE | 2016-07-16 06:51 | PN ---
Date/Time of Note Date/Time of Note DATE: 07/16/16 TIME: 06:50 Assessment/Plan Lines/Catheters [place] in Place (from Nrsg): No Subjective 24 Hr Interval Summary The patient is 10 days status post multilevel decompressive laminectomy from L2- L5. He is resting comfortably in rehab. His incision is clean and dry. Neurovascular structures are intact distally. He anticipates being discharged within the next few days. Follow-up instructions in my office have been discussed Exam/Review of Systems Vital Signs Vitals Vital Signs Date Time Temp Pulse Resp B/P Pulse Ox O2 Delivery O2 Flow Rate FiO2 07/15/16 20:00 98.7 69 18 128/65 99 07/14/16 07:26 Room Air Intake and Output 07/15/16 07/15/16 07/16/16 15:00 23:00 07:00 Intake Total 1100 ml 600 ml 600 ml Output Total 700 ml 420 ml 1850 ml Balance 400 ml 180 ml -1250 ml GISELLA LOAIZA MD Jul 16, 2016 06:51
[2016-07-16] MEDS: FERROUS SULFATE (EC) 325 MG TAB PO SCH ×3 (08:53→21:06)
[2016-07-16] MEDS: NITROFURANTOIN (SR) 100 MG CAP PO SCH ×2 (08:53→21:06)
[2016-07-16] MEDS: VALSARTAN 160 MG TAB PO SCH (08:55)
[2016-07-16] MEDS: DOCUSATE SODIUM 100 MG CAP PO SCH ×2 (08:55→21:06)
[2016-07-16] MEDS: ASCORBIC ACID 500 MG TAB PO SCH ×2 (08:56→21:06)
[2016-07-16] MEDS: HYDROCHLOROTHIAZIDE 25 MG TAB PO SCH (08:56)
[2016-07-16] MEDS: CLOTRIMAZOLE 1% 30 GM CR TOP SCH ×2 (08:57→21:06)
[2016-07-16] MEDS: AMLODIPINE 2.5 MG TAB PO SCH (08:57)
[2016-07-16] MEDS: RANITIDINE 150 MG TAB PO SCH ×2 (08:57→21:06)
[2016-07-16] MEDS: HYDROCODONE/APAP (5/325) TAB PO PRN (08:58)
--- NOTE | 2016-07-16 11:38 | CONS ---
Date/Time of Note Date/Time of Note DATE: 07/16/16 TIME: 11:38 Consult Date/Type/Reason Admit Date/Time July 09, 2016 at 20:57 Subjective no new complaints Objective pulm-cta min assist ambulation Vital Signs Date Time Temp Pulse Resp B/P Pulse Ox O2 Delivery O2 Flow Rate FiO2 07/15/16 20:00 98.7 69 18 128/65 99 07/14/16 07:26 Room Air Intake and Output 07/15/16 07/15/16 07/16/16 14:59 22:59 06:59 Intake Total 1100 ml 600 ml 600 ml Output Total 700 ml 420 ml 2650 ml Balance 400 ml 180 ml -2050 ml Results/Medications Medications Current Medications Valsartan (Diovan) 320 mg DAILY PO Last administered on 07/16/16 08:55; Admin Dose 320 MG; Start 07/10/16 at 09:00 Zolpidem Tartrate (Ambien) 5 mg HS PRN PO INSOMNIA Last administered on 22:52; Admin Dose 5 MG; Start 07/09/16 at 22:30 Hydrochlorothiazide (Hydrochlorothiazide) 25 mg DAILY PO Last administered on 08:56; Admin Dose 25 MG; Start 07/10/16 at 09:00 Acetaminophen/ Hydrocodone Bitart ([place] (5/325)) 1 tab Q4H PRN PO PAIN Last administered on 07/14/16 10:13; Admin Dose 1 TAB; Start 07/09/16 at 22:30 Acetaminophen/ Hydrocodone Bitart ([place] (5/325)) 2 tab Q4H PRN PO PAIN Last administered on 07/16/16 08:58; Admin Dose 2 TAB; Start 07/09/16 at 22:30 Naloxone HCl (Narcan) 0.2 mg Q2M PRN IV DECREASED REPIRATORY RATE; Start at 22:30 Ondansetron HCl (Zofran Inj) 4 mg Q6H PRN IV NAUSEA AND/OR VOMITING; Start at 22:30 Prochlorperazine (Compazine) 10 mg Q4H PRN PO NAUSEA AND/OR VOMITING Last administered on 07/16/16 08:56; Admin Dose 10 MG; Start 07/09/16 at 22:30 Ranitidine HCl (Zantac) 150 mg BID PO Last administered on 07/16/16 08:57; Admin Dose 150 MG; Start 07/09/16 at 23:00 Trimethobenzamide HCl (Tigan) 200 mg Q4H PRN IM NAUSEA AND/OR VOMITING; Start 07/09/16 at 23:00 Acetaminophen (Tylenol Tab) 650 mg Q4H PRN PO PAIN AND OR ELEVATED TEMP; Start 07/09/16 at 22:30 Al Hydrox/Mg Hydrox/Simethicone (Mag-Al Plus) 15 ml Q4H PRN PO GASTROINTESTINAL UPSET; Start 07/09/16 at 22:30 Amlodipine Besylate (Norvasc) 2.5 mg DAILY PO Last administered on 07/16/16 08: 57; Admin Dose 2.5 MG; Start 07/10/16 at 09:00 Ascorbic Acid (Vitamin C) 1,000 mg BID PO Last administered on 07/16/16 08:56; Admin Dose 1,000 MG; Start 07/09/16 at 23:00 Clotrimazole (Lotrimin Cr) 1 applic BID TOP Last administered on 07/16/16 08:57 ; Admin Dose 1 APPLIC; Start 07/09/16 at 23:00 Diazepam (Valium) 5 mg Q4H PRN PO MUSCLE SPASM Last administered on 07/15/16 22:52; Admin Dose 5 MG; Start 07/09/16 at 23:00 Diphenhydramine HCl (Benadryl) 50 mg Q6H PRN PO ALLERGIC REACTION; Start at 22:30 Docusate Sodium (Colace) 100 mg BID PO Last administered on 07/16/16 08:55; Admin Dose 100 MG; Start 07/09/16 at 23:00 Ferrous Sulfate (Ferrous Sulfate (Ec)) 325 mg TID PO Last administered on 08:53; Admin Dose 325 MG; Start 07/09/16 at 23:00 Bisacodyl (Dulcolax Supp) 10 mg DAILY PRN [place] CONSTIPATION; Start 07/10/16 at 04 :30 Senna (Senokot) 1 tab HS PO Last administered on 07/15/16 20:22; Admin Dose 1 TAB; Start 07/10/16 at 21:00 Magnesium Hydroxide (Milk Of Mag) 30 ml BID PRN PO CONSTIPATION; Start at 04:30 Lactulose (Enulose) 20 gm DAILY PRN PO CONSTIPATION; Start 07/10/16 at 04:30 Nitrofurantoin Macrocrystals (Macrobid) 100 mg BID PO Last administered on t 08:53; Admin Dose 100 MG; Start 07/11/16 at 13:00; Stop 07/18/16 at 12:59 Assessment/Plan Additional Assessment/Plan Rehab- Multilevel lumbar spinal stenosis with radiculopathy status post decompressive laminectomy. Continue rehab activities Hypertension. Morbid obesity. Acute pain syndrome. PITER VELÁSQUEZ MD Jul 16, 2016 11:38
--- NOTE | 2016-07-16 18:52 | PN ---
Date/Time of Note Date/Time of Note DATE: 07/16/16 TIME: 18:48 Assessment/Plan VTE Prophylaxis VTE Prophylaxis Intervention: ambulation Lines/Catheters Urinary Cath still in place: No Assessment/Plan Problems: (1) Urinary tract infection Status: Acute Comment: on antibiotics. Repeat urine culture ordered. No results to date. (2) Aftercare following surgery Status: Acute Comment: PT per ARU. Post op follow up per Dr. Cabrera. (3) Morbid (severe) obesity due to excess calories Status: Chronic Comment: No new issues (4) Essential (primary) hypertension Status: Chronic Comment: Decent BP control Subjective 24 Hr Interval Summary Free Text/Dictation Patient without complaints. Planning for possible discharge on Wednesday. Exam/Review of Systems Vital Signs Vitals Vital Signs Date Time Temp Pulse Resp B/P Pulse Ox O2 Delivery O2 Flow Rate FiO2 07/15/16 20:00 98.7 69 18 128/65 99 07/14/16 07:26 Room Air Intake and Output 07/15/16 07/15/16 07/16/16 15:00 23:00 07:00 Intake Total 1100 ml 600 ml 600 ml Output Total 700 ml 420 ml 2650 ml Balance 400 ml 180 ml -2050 ml Exam Constitutional: alert, obese Neck: supple Respiratory: clear to auscultation Cardiovascular: regular rate and rhythm Gastrointestinal: soft Musculoskeletal: nl extremities to inspection Extremities: normal pulses Medications Medications Current Medications Valsartan (Diovan) 320 mg DAILY PO Last administered on 07/16/16 08:55; Admin Dose 320 MG; Start 07/10/16 at 09:00 Zolpidem Tartrate (Ambien) 5 mg HS PRN PO INSOMNIA Last administered on 22:52; Admin Dose 5 MG; Start 07/09/16 at 22:30 Hydrochlorothiazide (Hydrochlorothiazide) 25 mg DAILY PO Last administered on 08:56; Admin Dose 25 MG; Start 07/10/16 at 09:00 Acetaminophen/ Hydrocodone Bitart ([place] (5/325)) 1 tab Q4H PRN PO PAIN Last administered on 07/14/16 10:13; Admin Dose 1 TAB; Start 07/09/16 at 22:30 Acetaminophen/ Hydrocodone Bitart ([place] (5/325)) 2 tab Q4H PRN PO PAIN Last administered on 07/16/16 08:58; Admin Dose 2 TAB; Start 07/09/16 at 22:30 Naloxone HCl (Narcan) 0.2 mg Q2M PRN IV DECREASED REPIRATORY RATE; Start at 22:30 Ondansetron HCl (Zofran Inj) 4 mg Q6H PRN IV NAUSEA AND/OR VOMITING; Start at 22:30 Prochlorperazine (Compazine) 10 mg Q4H PRN PO NAUSEA AND/OR VOMITING Last administered on 07/16/16 08:56; Admin Dose 10 MG; Start 07/09/16 at 22:30 Ranitidine HCl (Zantac) 150 mg BID PO Last administered on 07/16/16 08:57; Admin Dose 150 MG; Start 07/09/16 at 23:00 Trimethobenzamide HCl (Tigan) 200 mg Q4H PRN IM NAUSEA AND/OR VOMITING; Start 07/09/16 at 23:00 Acetaminophen (Tylenol Tab) 650 mg Q4H PRN PO PAIN AND OR ELEVATED TEMP; Start 07/09/16 at 22:30 Al Hydrox/Mg Hydrox/Simethicone (Mag-Al Plus) 15 ml Q4H PRN PO GASTROINTESTINAL UPSET; Start 07/09/16 at 22:30 Amlodipine Besylate (Norvasc) 2.5 mg DAILY PO Last administered on 07/16/16 08: 57; Admin Dose 2.5 MG; Start 07/10/16 at 09:00 Ascorbic Acid (Vitamin C) 1,000 mg BID PO Last administered on 07/16/16 08:56; Admin Dose 1,000 MG; Start 07/09/16 at 23:00 Clotrimazole (Lotrimin Cr) 1 applic BID TOP Last administered on 07/16/16 08:57 ; Admin Dose 1 APPLIC; Start 07/09/16 at 23:00 Diazepam (Valium) 5 mg Q4H PRN PO MUSCLE SPASM Last administered on 07/15/16 22:52; Admin Dose 5 MG; Start 07/09/16 at 23:00 Diphenhydramine HCl (Benadryl) 50 mg Q6H PRN PO ALLERGIC REACTION; Start at 22:30 Docusate Sodium (Colace) 100 mg BID PO Last administered on 07/16/16 08:55; Admin Dose 100 MG; Start 07/09/16 at 23:00 Ferrous Sulfate (Ferrous Sulfate (Ec)) 325 mg TID PO Last administered on 17:49; Admin Dose 325 MG; Start 07/09/16 at 23:00 Bisacodyl (Dulcolax Supp) 10 mg DAILY PRN [place] CONSTIPATION; Start 07/10/16 at 04 :30 Senna (Senokot) 1 tab HS PO Last administered on 07/15/16 20:22; Admin Dose 1 TAB; Start 07/10/16 at 21:00 Magnesium Hydroxide (Milk Of Mag) 30 ml BID PRN PO CONSTIPATION; Start at 04:30 Lactulose (Enulose) 20 gm DAILY PRN PO CONSTIPATION; Start 07/10/16 at 04:30 Nitrofurantoin Macrocrystals (Macrobid) 100 mg BID PO Last administered on 08:53; Admin Dose 100 MG; Start 07/11/16 at 13:00; Stop 07/18/16 at 12:59 TIERRA HOWELL MD Jul 16, 2016 18:52
[2016-07-16 20:00] VITALS: BP 127/64; RESP 18
[2016-07-16] MEDS: SENNA TAB PO SCH (21:06)
[2016-07-16] MEDS: DIAZEPAM 5 MG TAB PO PRN (21:06)
[2016-07-17] MEDS: NITROFURANTOIN (SR) 100 MG CAP PO SCH ×2 (08:52→20:44)
[2016-07-17] MEDS: RANITIDINE 150 MG TAB PO SCH ×2 (08:52→20:45)
[2016-07-17] MEDS: CLOTRIMAZOLE 1% 30 GM CR TOP SCH ×2 (08:52→20:45)
[2016-07-17] MEDS: HYDROCODONE/APAP (5/325) TAB PO PRN ×2 (08:52→20:57)
[2016-07-17] MEDS: DOCUSATE SODIUM 100 MG CAP PO SCH ×2 (08:52→20:45)
[2016-07-17] MEDS: ASCORBIC ACID 500 MG TAB PO SCH ×2 (08:52→20:45)
[2016-07-17] MEDS: FERROUS SULFATE (EC) 325 MG TAB PO SCH ×3 (08:52→20:44)
[2016-07-17] MEDS: VALSARTAN 160 MG TAB PO SCH (08:53)
[2016-07-17] MEDS: HYDROCHLOROTHIAZIDE 25 MG TAB PO SCH (08:53)
[2016-07-17] MEDS: AMLODIPINE 2.5 MG TAB PO SCH (08:54)
--- NOTE | 2016-07-17 11:25 | CONS ---
Date/Time of Note Date/Time of Note DATE: 07/17/16 TIME: 11:24 Consult Date/Type/Reason Admit Date/Time July 09, 2016 at 20:57 Subjective Comfortable Objective min assist ambulation Vital Signs Date Time Temp Pulse Resp B/P Pulse Ox O2 Delivery O2 Flow Rate FiO2 07/16/16 20:00 98.7 70 18 127/64 98 07/14/16 07:26 Room Air Intake and Output 07/16/16 07/16/16 07/17/16 15:00 23:00 07:00 Intake Total 1800 ml Output Total 1680 ml 900 ml Balance 120 ml -900 ml Results/Medications Medications Current Medications Valsartan (Diovan) 320 mg DAILY PO Last administered on 07/16/16 08:55; Admin Dose 320 MG; Start 07/10/16 at 09:00 Zolpidem Tartrate (Ambien) 5 mg HS PRN PO INSOMNIA Last administered on 22:52; Admin Dose 5 MG; Start 07/09/16 at 22:30 Hydrochlorothiazide (Hydrochlorothiazide) 25 mg DAILY PO Last administered on 08:56; Admin Dose 25 MG; Start 07/10/16 at 09:00 Acetaminophen/ Hydrocodone Bitart ([place] (5/325)) 1 tab Q4H PRN PO PAIN Last administered on 07/14/16 10:13; Admin Dose 1 TAB; Start 07/09/16 at 22:30 Acetaminophen/ Hydrocodone Bitart ([place] (5/325)) 2 tab Q4H PRN PO PAIN Last administered on 07/17/16 08:52; Admin Dose 2 TAB; Start 07/09/16 at 22:30 Naloxone HCl (Narcan) 0.2 mg Q2M PRN IV DECREASED REPIRATORY RATE; Start at 22:30 Ondansetron HCl (Zofran Inj) 4 mg Q6H PRN IV NAUSEA AND/OR VOMITING; Start at 22:30 Prochlorperazine (Compazine) 10 mg Q4H PRN PO NAUSEA AND/OR VOMITING Last administered on 07/16/16 08:56; Admin Dose 10 MG; Start 07/09/16 at 22:30 Ranitidine HCl (Zantac) 150 mg BID PO Last administered on 07/17/16 08:52; Admin Dose 150 MG; Start 07/09/16 at 23:00 Trimethobenzamide HCl (Tigan) 200 mg Q4H PRN IM NAUSEA AND/OR VOMITING; Start 07/09/16 at 23:00 Acetaminophen (Tylenol Tab) 650 mg Q4H PRN PO PAIN AND OR ELEVATED TEMP; Start 07/09/16 at 22:30 Al Hydrox/Mg Hydrox/Simethicone (Mag-Al Plus) 15 ml Q4H PRN PO GASTROINTESTINAL UPSET; Start 07/09/16 at 22:30 Amlodipine Besylate (Norvasc) 2.5 mg DAILY PO Last administered on 07/16/16 08: 57; Admin Dose 2.5 MG; Start 07/10/16 at 09:00 Ascorbic Acid (Vitamin C) 1,000 mg BID PO Last administered on 07/17/16 08:52; Admin Dose 1,000 MG; Start 07/09/16 at 23:00 Clotrimazole (Lotrimin Cr) 1 applic BID TOP Last administered on 07/17/16 08:52 ; Admin Dose 1 APPLIC; Start 07/09/16 at 23:00 Diazepam (Valium) 5 mg Q4H PRN PO MUSCLE SPASM Last administered on 07/16/16 21 :06; Admin Dose 5 MG; Start 07/09/16 at 23:00 Diphenhydramine HCl (Benadryl) 50 mg Q6H PRN PO ALLERGIC REACTION; Start at 22:30 Docusate Sodium (Colace) 100 mg BID PO Last administered on 07/17/16 08:52; Admin Dose 100 MG; Start 07/09/16 at 23:00 Ferrous Sulfate (Ferrous Sulfate (Ec)) 325 mg TID PO Last administered on 08:52; Admin Dose 325 MG; Start 07/09/16 at 23:00 Bisacodyl (Dulcolax Supp) 10 mg DAILY PRN [place] CONSTIPATION; Start 07/10/16 at 04 :30 Senna (Senokot) 1 tab HS PO Last administered on 07/16/16 21:06; Admin Dose 1 TAB; Start 07/10/16 at 21:00 Magnesium Hydroxide (Milk Of Mag) 30 ml BID PRN PO CONSTIPATION; Start at 04:30 Lactulose (Enulose) 20 gm DAILY PRN PO CONSTIPATION; Start 07/10/16 at 04:30 Nitrofurantoin Macrocrystals (Macrobid) 100 mg BID PO Last administered on t 08:52; Admin Dose 100 MG; Start 07/11/16 at 13:00; Stop 07/18/16 at 12:59 Assessment/Plan Additional Assessment/Plan Rehab- Multilevel lumbar spinal stenosis with radiculopathy status post decompressive laminectomy. Continue rehab therapies Hypertension. Morbid obesity. Acute pain syndrome. PITER VELÁSQUEZ MD Jul 17, 2016 11:25
--- NOTE | 2016-07-17 19:12 | PN ---
Date/Time of Note Date/Time of Note DATE: 07/17/16 TIME: 19:04 Assessment/Plan VTE Prophylaxis VTE Prophylaxis Intervention: ambulation Lines/Catheters Urinary Cath still in place: No Assessment/Plan Problems: (1) Urinary tract infection Status: Acute Comment: Pt. nearly complete w/ 7 days macrobid. Offending organisms were sensitive to this agent and pt. should be cleared when antibiotic stopped. (2) Essential (primary) hypertension Status: Chronic Comment: BP well-controlled. Cont. 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 (4) Aftercare following surgery Status: Acute Comment: Doing well POD#11. Pt. likely to be d/c'ed home in the next 3-4 days. Still some leg cramping. This might resolve vs. transition long-term to restless leg syndrome. May require chronic treatment w/ pramipexole. Subjective 24 Hr Interval Summary Constitutional: improved, no complaints Respiratory: no complaints Cardiovascular: no complaints Gastrointestinal: no complaints Genitourinary: no complaints Musculoskeletal: bone/joint pain (L knee minimal), no complaints, No back pain Neurologic: other (no leg weakness when he wears his brace, minimal leg spasms at night) Exam/Review of Systems Vital Signs Vitals VS - Last 72 Hours, by Label Date Time Temp Pulse Resp B/P Pulse Ox O2 Delivery O2 Flow Rate FiO2 07/16/16 20:00 98.7 70 18 127/64 98 07/15/16 20:00 98.7 69 18 128/65 99 07/15/16 07:38 98.5 65 18 114/56 97 Vital Signs Date Time Temp Pulse Resp B/P Pulse Ox O2 Delivery O2 Flow Rate FiO2 07/16/16 20:00 98.7 70 18 127/64 98 07/14/16 07:26 Room Air Intake and Output 07/16/16 07/16/16 07/17/16 15:00 23:00 07:00 Intake Total 1800 ml Output Total 1680 ml 900 ml Balance 120 ml -900 ml Exam Constitutional: alert, obese, oriented Psych: nl mood/affect, no complaints Respiratory: clear to auscultation, normal air movement Cardiovascular: nl pulses, regular rate and rhythm, No edema, No murmurs/extra sounds, No rub Gastrointestinal: bowel sounds, nl liver, spleen, non-tender, soft, No mass, No rebound or guarding Musculoskeletal: nl extremities to inspection Extremities: normal pulses, No clubbing, No cyanosis, No edema 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: HEALTH AND SAFETY REPRESENTATIVE II-XII intact, nl mental status, nl speech, nl strength Medications Medications Current Medications Valsartan (Diovan) 320 mg DAILY PO Last administered on 07/16/16 08:55; Admin Dose 320 MG; Start 07/10/16 at 09:00 Zolpidem Tartrate (Ambien) 5 mg HS PRN PO INSOMNIA Last administered on 22:52; Admin Dose 5 MG; Start 07/09/16 at 22:30 Hydrochlorothiazide (Hydrochlorothiazide) 25 mg DAILY PO Last administered on 08:56; Admin Dose 25 MG; Start 07/10/16 at 09:00 Acetaminophen/ Hydrocodone Bitart ([place] (5/325)) 1 tab Q4H PRN PO PAIN Last administered on 07/14/16 10:13; Admin Dose 1 TAB; Start 07/09/16 at 22:30 Acetaminophen/ Hydrocodone Bitart ([place] (5/325)) 2 tab Q4H PRN PO PAIN Last administered on 07/17/16 08:52; Admin Dose 2 TAB; Start 07/09/16 at 22:30 Naloxone HCl (Narcan) 0.2 mg Q2M PRN IV DECREASED REPIRATORY RATE; Start at 22:30 Ondansetron HCl (Zofran Inj) 4 mg Q6H PRN IV NAUSEA AND/OR VOMITING; Start at 22:30 Prochlorperazine (Compazine) 10 mg Q4H PRN PO NAUSEA AND/OR VOMITING Last administered on 07/16/16 08:56; Admin Dose 10 MG; Start 07/09/16 at 22:30 Ranitidine HCl (Zantac) 150 mg BID PO Last administered on 07/17/16 08:52; Admin Dose 150 MG; Start 07/09/16 at 23:00 Trimethobenzamide HCl (Tigan) 200 mg Q4H PRN IM NAUSEA AND/OR VOMITING; Start 07/09/16 at 23:00 Acetaminophen (Tylenol Tab) 650 mg Q4H PRN PO PAIN AND OR ELEVATED TEMP; Start 07/09/16 at 22:30 Al Hydrox/Mg Hydrox/Simethicone (Mag-Al Plus) 15 ml Q4H PRN PO GASTROINTESTINAL UPSET; Start 07/09/16 at 22:30 Amlodipine Besylate (Norvasc) 2.5 mg DAILY PO Last administered on 07/16/16 08: 57; Admin Dose 2.5 MG; Start 07/10/16 at 09:00 Ascorbic Acid (Vitamin C) 1,000 mg BID PO Last administered on 07/17/16 08:52; Admin Dose 1,000 MG; Start 07/09/16 at 23:00 Clotrimazole (Lotrimin Cr) 1 applic BID TOP Last administered on 07/17/16 08:52 ; Admin Dose 1 APPLIC; Start 07/09/16 at 23:00 Diazepam (Valium) 5 mg Q4H PRN PO MUSCLE SPASM Last administered on 07/16/16 21 :06; Admin Dose 5 MG; Start 07/09/16 at 23:00 Diphenhydramine HCl (Benadryl) 50 mg Q6H PRN PO ALLERGIC REACTION; Start at 22:30 Docusate Sodium (Colace) 100 mg BID PO Last administered on 07/17/16 08:52; Admin Dose 100 MG; Start 07/09/16 at 23:00 Ferrous Sulfate (Ferrous Sulfate (Ec)) 325 mg TID PO Last administered on 12:53; Admin Dose 325 MG; Start 07/09/16 at 23:00 Bisacodyl (Dulcolax Supp) 10 mg DAILY PRN [place] CONSTIPATION; Start 07/10/16 at 04 :30 Senna (Senokot) 1 tab HS PO Last administered on 07/16/16 21:06; Admin Dose 1 TAB; Start 07/10/16 at 21:00 Magnesium Hydroxide (Milk Of Mag) 30 ml BID PRN PO CONSTIPATION; Start at 04:30 Lactulose (Enulose) 20 gm DAILY PRN PO CONSTIPATION; Start 07/10/16 at 04:30 Nitrofurantoin Macrocrystals (Macrobid) 100 mg BID PO Last administered on 08:52; Admin Dose 100 MG; Start 07/11/16 at 13:00; Stop 07/18/16 at 12:59 ASHLEY JEREZ MD Jul 17, 2016 19:12
[2016-07-17 20:00] VITALS: BP 130/70; PULSE 68; RESP 18
[2016-07-17] MEDS: SENNA TAB PO SCH (20:45)
[2016-07-17] MEDS: ZOLPIDEM 5 MG TAB PO PRN (23:03)
[2016-07-18 07:30] VITALS: BP 134/74; RESP 18
[2016-07-18] MEDS: CLOTRIMAZOLE 1% 30 GM CR TOP SCH ×2 (08:48→21:52)
[2016-07-18] MEDS: RANITIDINE 150 MG TAB PO SCH ×2 (08:49→21:51)
[2016-07-18] MEDS: VALSARTAN 160 MG TAB PO SCH (08:49)
[2016-07-18] MEDS: HYDROCODONE/APAP (5/325) TAB PO PRN ×2 (08:49→21:52)
[2016-07-18] MEDS: FERROUS SULFATE (EC) 325 MG TAB PO SCH ×3 (08:49→21:51)
[2016-07-18] MEDS: NITROFURANTOIN (SR) 100 MG CAP PO SCH (08:49)
[2016-07-18] MEDS: AMLODIPINE 2.5 MG TAB PO SCH (08:50)
[2016-07-18] MEDS: ASCORBIC ACID 500 MG TAB PO SCH ×2 (08:50→21:51)
[2016-07-18] MEDS: HYDROCHLOROTHIAZIDE 25 MG TAB PO SCH (08:50)
[2016-07-18] MEDS: DOCUSATE SODIUM 100 MG CAP PO SCH ×2 (08:50→21:50)
--- NOTE | 2016-07-18 19:13 | PN ---
Date/Time of Note Date/Time of Note DATE: 07/18/16 TIME: 19:11 Assessment/Plan VTE Prophylaxis VTE Prophylaxis Intervention: ambulation Lines/Catheters Urinary Cath still in place: No Assessment/Plan Problems: (1) Urinary tract infection Status: Acute Comment: Finishing antibiotics. Asymptomatic. (2) Aftercare following surgery Status: Acute Comment: Clinically stable. Management per ARU (3) Morbid (severe) obesity due to excess calories Status: Chronic Comment: no issues at this time (4) Essential (primary) hypertension Status: Chronic Comment: Good BP control Subjective 24 Hr Interval Summary Free Text/Dictation Feels well. Doing well. Exam/Review of Systems Vital Signs Vitals Vital Signs Date Time Temp Pulse Resp B/P Pulse Ox O2 Delivery O2 Flow Rate FiO2 07/18/16 07:30 98.7 66 18 134/74 96 07/17/16 20:00 Room Air Intake and Output 07/17/16 07/17/16 07/18/16 15:00 23:00 07:00 Intake Total 1200 ml 600 ml 400 ml Output Total 400 ml 400 ml 2150 ml Balance 800 ml 200 ml -1750 ml Exam Constitutional: alert, obese, oriented Neck: supple Respiratory: clear to auscultation Cardiovascular: regular rate and rhythm Gastrointestinal: soft Extremities: normal pulses Results Chart reviewed Medications Medications Current Medications Valsartan (Diovan) 320 mg DAILY PO Last administered on 07/18/16 08:49; Admin Dose 320 MG; Start 07/10/16 at 09:00 Zolpidem Tartrate (Ambien) 5 mg HS PRN PO INSOMNIA Last administered on 23:03; Admin Dose 5 MG; Start 07/09/16 at 22:30 Hydrochlorothiazide (Hydrochlorothiazide) 25 mg DAILY PO Last administered on 08:50; Admin Dose 25 MG; Start 07/10/16 at 09:00 Acetaminophen/ Hydrocodone Bitart ([place] (5/325)) 1 tab Q4H PRN PO PAIN Last administered on 07/17/16 20:57; Admin Dose 1 TAB; Start 07/09/16 at 22:30 Acetaminophen/ Hydrocodone Bitart ([place] (5/325)) 2 tab Q4H PRN PO PAIN Last administered on 07/18/16 08:49; Admin Dose 2 TAB; Start 07/09/16 at 22:30 Naloxone HCl (Narcan) 0.2 mg Q2M PRN IV DECREASED REPIRATORY RATE; Start at 22:30 Ondansetron HCl (Zofran Inj) 4 mg Q6H PRN IV NAUSEA AND/OR VOMITING; Start at 22:30 Prochlorperazine (Compazine) 10 mg Q4H PRN PO NAUSEA AND/OR VOMITING Last administered on 07/16/16 08:56; Admin Dose 10 MG; Start 07/09/16 at 22:30 Ranitidine HCl (Zantac) 150 mg BID PO Last administered on 07/18/16 08:49; Admin Dose 150 MG; Start 07/09/16 at 23:00 Trimethobenzamide HCl (Tigan) 200 mg Q4H PRN IM NAUSEA AND/OR VOMITING; Start 07/09/16 at 23:00 Acetaminophen (Tylenol Tab) 650 mg Q4H PRN PO PAIN AND OR ELEVATED TEMP Last administered on 07/18/16 15:44; Admin Dose 650 MG; Start 07/09/16 at 22:30 Al Hydrox/Mg Hydrox/Simethicone (Mag-Al Plus) 15 ml Q4H PRN PO GASTROINTESTINAL UPSET; Start 07/09/16 at 22:30 Amlodipine Besylate (Norvasc) 2.5 mg DAILY PO Last administered on 07/18/16 08: 50; Admin Dose 2.5 MG; Start 07/10/16 at 09:00 Ascorbic Acid (Vitamin C) 1,000 mg BID PO Last administered on 07/18/16 08:50; Admin Dose 1,000 MG; Start 07/09/16 at 23:00 Clotrimazole (Lotrimin Cr) 1 applic BID TOP Last administered on 07/18/16 08:48 ; Admin Dose 1 APPLIC; Start 07/09/16 at 23:00 Diazepam (Valium) 5 mg Q4H PRN PO MUSCLE SPASM Last administered on 07/16/16 21 :06; Admin Dose 5 MG; Start 07/09/16 at 23:00 Diphenhydramine HCl (Benadryl) 50 mg Q6H PRN PO ALLERGIC REACTION; Start at 22:30 Docusate Sodium (Colace) 100 mg BID PO Last administered on 07/18/16 08:50; Admin Dose 100 MG; Start 07/09/16 at 23:00 Ferrous Sulfate (Ferrous Sulfate (Ec)) 325 mg TID PO Last administered on 12:41; Admin Dose 325 MG; Start 07/09/16 at 23:00 Bisacodyl (Dulcolax Supp) 10 mg DAILY PRN [place] CONSTIPATION; Start 07/10/16 at 04 :30 Senna (Senokot) 1 tab HS PO Last administered on 07/17/16 20:45; Admin Dose 1 TAB; Start 07/10/16 at 21:00 Magnesium Hydroxide (Milk Of Mag) 30 ml BID PRN PO CONSTIPATION; Start at 04:30 Lactulose (Enulose) 20 gm DAILY PRN PO CONSTIPATION; Start 07/10/16 at 04:30 TIERRA HOWELL MD Jul 18, 2016 19:13
[2016-07-18] MEDS: SENNA TAB PO SCH (21:00)
[2016-07-18 21:45] VITALS: BP 121/68; PULSE 69; RESP 20
[2016-07-18] MEDS: ZOLPIDEM 5 MG TAB PO PRN (21:52)
[2016-07-19] MEDS: AMLODIPINE 2.5 MG TAB PO SCH (08:10)
[2016-07-19] MEDS: RANITIDINE 150 MG TAB PO SCH ×2 (08:10→21:10)
[2016-07-19] MEDS: VALSARTAN 160 MG TAB PO SCH (08:10)
[2016-07-19] MEDS: DOCUSATE SODIUM 100 MG CAP PO SCH ×2 (08:10→21:11)
[2016-07-19] MEDS: ASCORBIC ACID 500 MG TAB PO SCH ×2 (08:11→21:11)
[2016-07-19] MEDS: HYDROCHLOROTHIAZIDE 25 MG TAB PO SCH (08:11)
[2016-07-19] MEDS: FERROUS SULFATE (EC) 325 MG TAB PO SCH ×3 (08:11→21:10)
[2016-07-19] MEDS: CLOTRIMAZOLE 1% 30 GM CR TOP SCH ×2 (08:14→21:11)
--- NOTE | 2016-07-19 10:34 | CONS ---
Date/Time of Note Date/Time of Note DATE: 07/19/16 TIME: 10:32 Consult Date/Type/Reason Admit Date/Time July 09, 2016 at 20:57 Subjective Feels better Objective Vital Signs Date Time Temp Pulse Resp B/P Pulse Ox O2 Delivery O2 Flow Rate FiO2 07/18/16 21:45 97.9 69 20 121/68 97 Room Air Intake and Output 07/18/16 07/18/16 07/19/16 15:00 23:00 07:00 Intake Total 820 ml 700 ml Output Total 1000 ml 1580 ml Balance -180 ml -880 ml pulm-cta abd-soft, nt s ambulation Results/Medications Medications Current Medications Valsartan (Diovan) 320 mg DAILY PO Last administered on 07/19/16 08:10; Admin Dose 320 MG; Start 07/10/16 at 09:00 Zolpidem Tartrate (Ambien) 5 mg HS PRN PO INSOMNIA Last administered on 21:52; Admin Dose 5 MG; Start 07/09/16 at 22:30 Hydrochlorothiazide (Hydrochlorothiazide) 25 mg DAILY PO Last administered on 08:11; Admin Dose 25 MG; Start 07/10/16 at 09:00 Acetaminophen/ Hydrocodone Bitart ([place] (5/325)) 1 tab Q4H PRN PO PAIN Last administered on 07/17/16 20:57; Admin Dose 1 TAB; Start 07/09/16 at 22:30 Acetaminophen/ Hydrocodone Bitart ([place] (5/325)) 2 tab Q4H PRN PO PAIN Last administered on 07/18/16 21:52; Admin Dose 2 TAB; Start 07/09/16 at 22:30 Naloxone HCl (Narcan) 0.2 mg Q2M PRN IV DECREASED REPIRATORY RATE; Start at 22:30 Ondansetron HCl (Zofran Inj) 4 mg Q6H PRN IV NAUSEA AND/OR VOMITING; Start at 22:30 Prochlorperazine (Compazine) 10 mg Q4H PRN PO NAUSEA AND/OR VOMITING Last administered on 07/16/16 08:56; Admin Dose 10 MG; Start 07/09/16 at 22:30 Ranitidine HCl (Zantac) 150 mg BID PO Last administered on 07/19/16 08:10; Admin Dose 150 MG; Start 07/09/16 at 23:00 Trimethobenzamide HCl (Tigan) 200 mg Q4H PRN IM NAUSEA AND/OR VOMITING; Start 07/09/16 at 23:00 Acetaminophen (Tylenol Tab) 650 mg Q4H PRN PO PAIN AND OR ELEVATED TEMP Last administered on 07/18/16 15:44; Admin Dose 650 MG; Start 07/09/16 at 22:30 Al Hydrox/Mg Hydrox/Simethicone (Mag-Al Plus) 15 ml Q4H PRN PO GASTROINTESTINAL UPSET; Start 07/09/16 at 22:30 Amlodipine Besylate (Norvasc) 2.5 mg DAILY PO Last administered on 07/19/16 08: 10; Admin Dose 2.5 MG; Start 07/10/16 at 09:00 Ascorbic Acid (Vitamin C) 1,000 mg BID PO Last administered on 07/19/16 08:11; Admin Dose 1,000 MG; Start 07/09/16 at 23:00 Clotrimazole (Lotrimin Cr) 1 applic BID TOP Last administered on 07/18/16 21:52 ; Admin Dose 1 APPLIC; Start 07/09/16 at 23:00 Diazepam (Valium) 5 mg Q4H PRN PO MUSCLE SPASM Last administered on 07/16/16 21 :06; Admin Dose 5 MG; Start 07/09/16 at 23:00 Diphenhydramine HCl (Benadryl) 50 mg Q6H PRN PO ALLERGIC REACTION; Start at 22:30 Docusate Sodium (Colace) 100 mg BID PO Last administered on 07/19/16 08:10; Admin Dose 100 MG; Start 07/09/16 at 23:00 Ferrous Sulfate (Ferrous Sulfate (Ec)) 325 mg TID PO Last administered on 08:11; Admin Dose 325 MG; Start 07/09/16 at 23:00 Bisacodyl (Dulcolax Supp) 10 mg DAILY PRN [place] CONSTIPATION; Start 07/10/16 at 04 :30 Senna (Senokot) 1 tab HS PO Last administered on 07/17/16 20:45; Admin Dose 1 TAB; Start 07/10/16 at 21:00 Magnesium Hydroxide (Milk Of Mag) 30 ml BID PRN PO CONSTIPATION; Start at 04:30 Lactulose (Enulose) 20 gm DAILY PRN PO CONSTIPATION; Start 07/10/16 at 04:30 Assessment/Plan Additional Assessment/Plan Rehab- Multilevel lumbar spinal stenosis with radiculopathy status post decompressive laminectomy. Excellent progress, working towards dc tomorrow Hypertension. Morbid obesity. Acute pain syndrome. PITER VELÁSQUEZ MD Jul 19, 2016 10:34
--- NOTE | 2016-07-19 13:12 | PN ---
Date/Time of Note Date/Time of Note DATE: 07/19/16 TIME: 13:09 Assessment/Plan VTE Prophylaxis VTE Prophylaxis Intervention: ambulation Lines/Catheters Urinary Cath still in place: No Assessment/Plan Problems: (1) Urinary tract infection Status: Acute Comment: Completed antibiotics. (2) Aftercare following surgery Status: Acute Comment: PT per ARU. Probable discharge tomorrow. (3) Morbid (severe) obesity due to excess calories Status: Chronic Comment: No new issues at this time (4) Essential (primary) hypertension Status: Chronic Comment: Good BP control. Subjective 24 Hr Interval Summary Free Text/Dictation Feels great. Progressing nicely. Exam/Review of Systems Vital Signs Vitals Vital Signs Date Time Temp Pulse Resp B/P Pulse Ox O2 Delivery O2 Flow Rate FiO2 07/18/16 21:45 97.9 69 20 121/68 97 Room Air Intake and Output 07/18/16 07/18/16 07/19/16 15:00 23:00 07:00 Intake Total 820 ml 700 ml Output Total 1000 ml 1580 ml Balance -180 ml -880 ml Exam Constitutional: alert, obese Psych: no complaints Head: normocephalic Neck: supple Respiratory: clear to auscultation Cardiovascular: regular rate and rhythm Gastrointestinal: soft Musculoskeletal: nl extremities to inspection Results Labs and vitals reviewed Medications Medications Current Medications Valsartan (Diovan) 320 mg DAILY PO Last administered on 07/19/16 08:10; Admin Dose 320 MG; Start 07/10/16 at 09:00 Zolpidem Tartrate (Ambien) 5 mg HS PRN PO INSOMNIA Last administered on 21:52; Admin Dose 5 MG; Start 07/09/16 at 22:30 Hydrochlorothiazide (Hydrochlorothiazide) 25 mg DAILY PO Last administered on 08:11; Admin Dose 25 MG; Start 07/10/16 at 09:00 Acetaminophen/ Hydrocodone Bitart ([place] (5/325)) 1 tab Q4H PRN PO PAIN Last administered on 07/17/16 20:57; Admin Dose 1 TAB; Start 07/09/16 at 22:30 Acetaminophen/ Hydrocodone Bitart ([place] (5/325)) 2 tab Q4H PRN PO PAIN Last administered on 07/18/16 21:52; Admin Dose 2 TAB; Start 07/09/16 at 22:30 Naloxone HCl (Narcan) 0.2 mg Q2M PRN IV DECREASED REPIRATORY RATE; Start at 22:30 Ondansetron HCl (Zofran Inj) 4 mg Q6H PRN IV NAUSEA AND/OR VOMITING; Start at 22:30 Prochlorperazine (Compazine) 10 mg Q4H PRN PO NAUSEA AND/OR VOMITING Last administered on 07/16/16 08:56; Admin Dose 10 MG; Start 07/09/16 at 22:30 Ranitidine HCl (Zantac) 150 mg BID PO Last administered on 07/19/16 08:10; Admin Dose 150 MG; Start 07/09/16 at 23:00 Trimethobenzamide HCl (Tigan) 200 mg Q4H PRN IM NAUSEA AND/OR VOMITING; Start 07/09/16 at 23:00 Acetaminophen (Tylenol Tab) 650 mg Q4H PRN PO PAIN AND OR ELEVATED TEMP Last administered on 07/18/16 15:44; Admin Dose 650 MG; Start 07/09/16 at 22:30 Al Hydrox/Mg Hydrox/Simethicone (Mag-Al Plus) 15 ml Q4H PRN PO GASTROINTESTINAL UPSET; Start 07/09/16 at 22:30 Amlodipine Besylate (Norvasc) 2.5 mg DAILY PO Last administered on 07/19/16 08: 10; Admin Dose 2.5 MG; Start 07/10/16 at 09:00 Ascorbic Acid (Vitamin C) 1,000 mg BID PO Last administered on 07/19/16 08:11; Admin Dose 1,000 MG; Start 07/09/16 at 23:00 Clotrimazole (Lotrimin Cr) 1 applic BID TOP Last administered on 07/18/16 21:52 ; Admin Dose 1 APPLIC; Start 07/09/16 at 23:00 Diazepam (Valium) 5 mg Q4H PRN PO MUSCLE SPASM Last administered on 07/16/16 21 :06; Admin Dose 5 MG; Start 07/09/16 at 23:00 Diphenhydramine HCl (Benadryl) 50 mg Q6H PRN PO ALLERGIC REACTION; Start at 22:30 Docusate Sodium (Colace) 100 mg BID PO Last administered on 07/19/16 08:10; Admin Dose 100 MG; Start 07/09/16 at 23:00 Ferrous Sulfate (Ferrous Sulfate (Ec)) 325 mg TID PO Last administered on 12:36; Admin Dose 325 MG; Start 07/09/16 at 23:00 Bisacodyl (Dulcolax Supp) 10 mg DAILY PRN [place] CONSTIPATION; Start 07/10/16 at 04 :30 Senna (Senokot) 1 tab HS PO Last administered on 07/17/16 20:45; Admin Dose 1 TAB; Start 07/10/16 at 21:00 Magnesium Hydroxide (Milk Of Mag) 30 ml BID PRN PO CONSTIPATION; Start at 04:30 Lactulose (Enulose) 20 gm DAILY PRN PO CONSTIPATION; Start 07/10/16 at 04:30 TIERRA HOWELL MD Jul 19, 2016 13:12
[2016-07-19] MEDS: SENNA TAB PO SCH (21:00)
[2016-07-19] MEDS: ZOLPIDEM 5 MG TAB PO PRN (21:11)
[2016-07-19 21:15] VITALS: BP 126/60; RESP 18
[2016-07-19] MEDS: HYDROCODONE/APAP (5/325) TAB PO PRN (21:18)
[2016-07-20 07:30] VITALS: BP 129/60; RESP 18
[2016-07-20] MEDS: CLOTRIMAZOLE 1% 30 GM CR TOP SCH (08:25)
[2016-07-20] MEDS: RANITIDINE 150 MG TAB PO SCH (08:25)
[2016-07-20] MEDS: AMLODIPINE 2.5 MG TAB PO SCH (08:26)
[2016-07-20] MEDS: ASCORBIC ACID 500 MG TAB PO SCH (08:26)
[2016-07-20] MEDS: FERROUS SULFATE (EC) 325 MG TAB PO SCH ×2 (08:26→12:59)
[2016-07-20] MEDS: HYDROCHLOROTHIAZIDE 25 MG TAB PO SCH (08:26)
[2016-07-20] MEDS: VALSARTAN 160 MG TAB PO SCH (08:27)
[2016-07-20] MEDS: DOCUSATE SODIUM 100 MG CAP PO SCH (08:27)
[2016-07-20] MEDS: HYDROCODONE/APAP (5/325) TAB PO PRN (08:32)
--- NOTE | 2016-07-20 12:01 | CONS ---
Date/Time of Note Date/Time of Note DATE: 07/20/16 TIME: 12:00 Consult Date/Type/Reason Admit Date/Time July 09, 2016 at 20:57 Objective Vital Signs Date Time Temp Pulse Resp B/P Pulse Ox O2 Delivery O2 Flow Rate FiO2 07/20/16 07:30 98.9 64 18 129/60 98 07/18/16 21:45 Room Air Intake and Output 07/19/16 07/19/16 07/20/16 15:00 23:00 07:00 Intake Total 780 ml Output Total 600 ml 1600 ml Balance 180 ml -1600 ml INTERDISCIPLINARY TEAM CONFERENCE BOWEL- Cont BLADDER-Cont SKIN- intact OT- DRESSING-sba BATHING-sba TOILETING-sba PT- BED MOBILITY-sba TRANSFERS-sba AMBULATION-sba 150 feet A/P- Interdisciplinary team conference held today. Please see interdisciplinary sheet. Working toward d.c. TODAY with post discharge follow up of physical therapy, occupational therapy. Results/Medications Medications Current Medications Valsartan (Diovan) 320 mg DAILY PO Last administered on 07/20/16 08:27; Admin Dose 320 MG; Start 07/10/16 at 09:00 Zolpidem Tartrate (Ambien) 5 mg HS PRN PO INSOMNIA Last administered on 21:11; Admin Dose 5 MG; Start 07/09/16 at 22:30 Hydrochlorothiazide (Hydrochlorothiazide) 25 mg DAILY PO Last administered on 08:26; Admin Dose 25 MG; Start 07/10/16 at 09:00 Acetaminophen/ Hydrocodone Bitart ([place] (5/325)) 1 tab Q4H PRN PO PAIN Last administered on 07/20/16 08:32; Admin Dose 1 TAB; Start 07/09/16 at 22:30 Acetaminophen/ Hydrocodone Bitart ([place] (5/325)) 2 tab Q4H PRN PO PAIN Last administered on 07/18/16 21:52; Admin Dose 2 TAB; Start 07/09/16 at 22:30 Naloxone HCl (Narcan) 0.2 mg Q2M PRN IV DECREASED REPIRATORY RATE; Start at 22:30 Ondansetron HCl (Zofran Inj) 4 mg Q6H PRN IV NAUSEA AND/OR VOMITING; Start at 22:30 Prochlorperazine (Compazine) 10 mg Q4H PRN PO NAUSEA AND/OR VOMITING Last administered on 07/16/16 08:56; Admin Dose 10 MG; Start 07/09/16 at 22:30 Ranitidine HCl (Zantac) 150 mg BID PO Last administered on 07/20/16 08:25; Admin Dose 150 MG; Start 07/09/16 at 23:00 Trimethobenzamide HCl (Tigan) 200 mg Q4H PRN IM NAUSEA AND/OR VOMITING; Start 07/09/16 at 23:00 Acetaminophen (Tylenol Tab) 650 mg Q4H PRN PO PAIN AND OR ELEVATED TEMP Last administered on 07/18/16 15:44; Admin Dose 650 MG; Start 07/09/16 at 22:30 Al Hydrox/Mg Hydrox/Simethicone (Mag-Al Plus) 15 ml Q4H PRN PO GASTROINTESTINAL UPSET; Start 07/09/16 at 22:30 Amlodipine Besylate (Norvasc) 2.5 mg DAILY PO Last administered on 07/20/16 08: 26; Admin Dose 2.5 MG; Start 07/10/16 at 09:00 Ascorbic Acid (Vitamin C) 1,000 mg BID PO Last administered on 07/20/16 08:26; Admin Dose 1,000 MG; Start 07/09/16 at 23:00 Clotrimazole (Lotrimin Cr) 1 applic BID TOP Last administered on 07/20/16 08:25 ; Admin Dose 1 APPLIC; Start 07/09/16 at 23:00 Diazepam (Valium) 5 mg Q4H PRN PO MUSCLE SPASM Last administered on 07/16/16 21 :06; Admin Dose 5 MG; Start 07/09/16 at 23:00 Diphenhydramine HCl (Benadryl) 50 mg Q6H PRN PO ALLERGIC REACTION; Start at 22:30 Docusate Sodium (Colace) 100 mg BID PO Last administered on 07/20/16 08:27; Admin Dose 100 MG; Start 07/09/16 at 23:00 Ferrous Sulfate (Ferrous Sulfate (Ec)) 325 mg TID PO Last administered on 08:26; Admin Dose 325 MG; Start 07/09/16 at 23:00 Bisacodyl (Dulcolax Supp) 10 mg DAILY PRN [place] CONSTIPATION; Start 07/10/16 at 04 :30 Senna (Senokot) 1 tab HS PO Last administered on 07/17/16t 20:45; Admin Dose 1 TAB; Start 07/10/16 at 21:00 Magnesium Hydroxide (Milk Of Mag) 30 ml BID PRN PO CONSTIPATION; Start at 04:30 Lactulose (Enulose) 20 gm DAILY PRN PO CONSTIPATION; Start 07/10/16 at 04:30 PITER VELÁSQUEZ MD Jul 20, 2016 12:01
== END 2016-07-20 13:00 | disposition home health service (06) | DRG 560 ==
LOC: VRC 20:57
PROVIDERS: ADMIT Physical Medicine & Rehabilitation; ATTEND Internal Medicine
PROC: F07Z5FZ Bed Mobility Treatment using Assistive, Adaptive, Supportive or Protective Equipment (ICD-10-PCS; principal; 2016-07-10)
PROC: F07Z8FZ Transfer Training Treatment using Assistive, Adaptive, Supportive or Protective Equipment (ICD-10-PCS; 2016-07-10)
PROC: F07Z9FZ Gait Training/Functional Ambulation Treatment using Assistive, Adaptive, Supportive or Protective Equipment (ICD-10-PCS; 2016-07-10)
PROC: F08Z2FZ Grooming/Personal Hygiene Treatment using Assistive, Adaptive, Supportive or Protective Equipment (ICD-10-PCS; 2016-07-10)
PROC: F08Z1FZ Dressing Techniques Treatment using Assistive, Adaptive, Supportive or Protective Equipment (ICD-10-PCS; 2016-07-10)
PROC: F08Z0FZ Bathing/Showering Techniques Treatment using Assistive, Adaptive, Supportive or Protective Equipment (ICD-10-PCS; 2016-07-10)
DX: Z47.89 Encounter for other orthopedic aftercare (principal); Z68.43 Body mass index [BMI] 50.0-59.9, adult; N39.0 Urinary tract infection, site not specified; I10 Essential (primary) hypertension; M23.207 Derangement of unspecified meniscus due to old tear or injury, left knee; B35.3 Tinea pedis; Z48.89 Encounter for other specified surgical aftercare; G89.18 Other acute postprocedural pain; Z98.890 Other specified postprocedural states; E66.01 Morbid (severe) obesity due to excess calories; K59.00 Constipation, unspecified; G47.00 Insomnia, unspecified; B96.1 Klebsiella pneumoniae [K. pneumoniae] as the cause of diseases classified elsewhere; F32.9 Major depressive disorder, single episode, unspecified
CPT/HCPCS: 80053; 81003; 85025; 87081; 87086; 97110; 97112; 97116; 97150; 97163; 97167; 97530; 97535; 97542; L1820; L1832